=== PATIENT | female | born 1990 | race Caucasian/White ===

== ENCOUNTER 2022-08-13 10:49 | Outpatient (REF) | payer MEDICAID, SELFPAY ==
--- NOTE | ~2022-08-13 | XR_ITS ---
EXAMINATION: CERVICAL SPINE 3 VIEWS CLINICAL INFORMATION: Cerebral palsy. COMPARISON: None. TECHNIQUE: Frontal, bilateral oblique, lateral and odontoid views are obtained. FINDINGS: Vertebral body heights are normal. There is a slight cervical levoscoliosis. . The disc spaces are well-maintained. No acute fracture or spondylolisthesis is seen. The posterior elements are intact. No definite neural foraminal narrowing is seen on oblique views, limited by patient positioning. There is no prevertebral soft tissue swelling. The dens and C7-T1 interface are normal. XR/XR cervical spine w flex/ext IMPRESSION: 1. There is a slight cervical levoscoliosis. 2. The cervical disc spaces are well-maintained EXAMINATION: XR THORACIC SPINE CLINICAL INFORMATION: Limited range of motion. COMPARISON: None TECHNIQUE: Frontal, lateral and odontoid views of the thoracic spine were obtained. FINDINGS: Vertebral body heights are normal. There is a moderate thoracolumbar dextroscoliosis. There is leftward disc space narrowing at T9-T10 and T10-T11. The remaining thoracic disc spaces are well-maintained. There are intact Martin rods, extending from approximately T3-L4. The posterior elements are intact. The paravertebral soft tissues are unremarkable. IMPRESSION: 1. There is a moderate thoracolumbar dextroscoliosis. 2. There are intact thoracolumbar Martin rods. 3. There is a mild to moderate degenerative disc disease at T9-T10 and T10-T11. EXAMINATION: XR LUMBOSACRAL SPINE CLINICAL INFORMATION: Limited range of motion. COMPARISON: None TECHNIQUE: AP, lateral, and both oblique views of the lumbosacral spine. FINDINGS: Vertebral body heights are normal. There is a moderate thoracolumbar dextroscoliosis. Intact thoracolumbar Martin rods are noted. There is mild disc space narrowing extending from L1-L2 through L3-L4. The posterior elements are intact. The paravertebral soft tissues are unremarkable. IMPRESSION: 1. There is a moderate thoracolumbar dextroscoliosis. 2. There are intact thoracolumbar Martin rods. 3. There is mild degenerative disc disease extending from L1-L2 through L3-L4.
--- NOTE | ~2022-08-13 | XR_ITS ---
EXAMINATION: CERVICAL SPINE 3 VIEWS CLINICAL INFORMATION: Cerebral palsy. COMPARISON: None. TECHNIQUE: Frontal, bilateral oblique, lateral and odontoid views are obtained. FINDINGS: Vertebral body heights are normal. There is a slight cervical levoscoliosis. . The disc spaces are well-maintained. No acute fracture or spondylolisthesis is seen. The posterior elements are intact. No definite neural foraminal narrowing is seen on oblique views, limited by patient positioning. There is no prevertebral soft tissue swelling. The dens and C7-T1 interface are normal. XR/XR lumbar spine 4V min IMPRESSION: 1. There is a slight cervical levoscoliosis. 2. The cervical disc spaces are well-maintained EXAMINATION: XR THORACIC SPINE CLINICAL INFORMATION: Limited range of motion. COMPARISON: None TECHNIQUE: Frontal, lateral and odontoid views of the thoracic spine were obtained. FINDINGS: Vertebral body heights are normal. There is a moderate thoracolumbar dextroscoliosis. There is leftward disc space narrowing at T9-T10 and T10-T11. The remaining thoracic disc spaces are well-maintained. There are intact Martin rods, extending from approximately T3-L4. The posterior elements are intact. The paravertebral soft tissues are unremarkable. IMPRESSION: 1. There is a moderate thoracolumbar dextroscoliosis. 2. There are intact thoracolumbar Martin rods. 3. There is a mild to moderate degenerative disc disease at T9-T10 and T10-T11. EXAMINATION: XR LUMBOSACRAL SPINE CLINICAL INFORMATION: Limited range of motion. COMPARISON: None TECHNIQUE: AP, lateral, and both oblique views of the lumbosacral spine. FINDINGS: Vertebral body heights are normal. There is a moderate thoracolumbar dextroscoliosis. Intact thoracolumbar Martin rods are noted. There is mild disc space narrowing extending from L1-L2 through L3-L4. The posterior elements are intact. The paravertebral soft tissues are unremarkable. IMPRESSION: 1. There is a moderate thoracolumbar dextroscoliosis. 2. There are intact thoracolumbar Martin rods. 3. There is mild degenerative disc disease extending from L1-L2 through L3-L4.
--- NOTE | ~2022-08-13 | XR_ITS ---
EXAMINATION: CERVICAL SPINE 3 VIEWS CLINICAL INFORMATION: Cerebral palsy. COMPARISON: None. TECHNIQUE: Frontal, bilateral oblique, lateral and odontoid views are obtained. FINDINGS: Vertebral body heights are normal. There is a slight cervical levoscoliosis. . The disc spaces are well-maintained. No acute fracture or spondylolisthesis is seen. The posterior elements are intact. No definite neural foraminal narrowing is seen on oblique views, limited by patient positioning. There is no prevertebral soft tissue swelling. The dens and C7-T1 interface are normal. XR/XR thoracic spine 3V IMPRESSION: 1. There is a slight cervical levoscoliosis. 2. The cervical disc spaces are well-maintained EXAMINATION: XR THORACIC SPINE CLINICAL INFORMATION: Limited range of motion. COMPARISON: None TECHNIQUE: Frontal, lateral and odontoid views of the thoracic spine were obtained. FINDINGS: Vertebral body heights are normal. There is a moderate thoracolumbar dextroscoliosis. There is leftward disc space narrowing at T9-T10 and T10-T11. The remaining thoracic disc spaces are well-maintained. There are intact Martin rods, extending from approximately T3-L4. The posterior elements are intact. The paravertebral soft tissues are unremarkable. IMPRESSION: 1. There is a moderate thoracolumbar dextroscoliosis. 2. There are intact thoracolumbar Martin rods. 3. There is a mild to moderate degenerative disc disease at T9-T10 and T10-T11. EXAMINATION: XR LUMBOSACRAL SPINE CLINICAL INFORMATION: Limited range of motion. COMPARISON: None TECHNIQUE: AP, lateral, and both oblique views of the lumbosacral spine. FINDINGS: Vertebral body heights are normal. There is a moderate thoracolumbar dextroscoliosis. Intact thoracolumbar Martin rods are noted. There is mild disc space narrowing extending from L1-L2 through L3-L4. The posterior elements are intact. The paravertebral soft tissues are unremarkable. IMPRESSION: 1. There is a moderate thoracolumbar dextroscoliosis. 2. There are intact thoracolumbar Martin rods. 3. There is mild degenerative disc disease extending from L1-L2 through L3-L4.
== END 2022-08-13 10:50 | disposition home or self-care (01) ==
LOC: HO.XRAY 10:49
PROVIDERS: PCP Family Medicine; Visit Provider Family Medicine
DX: M41.9 Scoliosis, unspecified (principal); G80.8 Other cerebral palsy
CPT/HCPCS: 72052; 72072; 72110

== ENCOUNTER 2022-12-04 08:01 | Emergency (ER) | payer MEDICAID, SELFPAY ==
--- NOTE | 2022-12-04 08:10 | ED.GENADULT ---
HPI - General Adult General Chief complaint: Extremity Injury, Lower Stated complaint: ? removed needle Time Seen by Provider: 12/04/22 08:10 Source: family (patient's parents) Mode of arrival: wheelchair Limitations: other (patient is non-verbal at baseline) History of Present Illness HPI narrative: Patient is a 32 year old assigned female at with a history of cognitive/developmental delay and wheelchair bound presenting to the emergency department today with left great toe pain. Patient's parents state that the patient's left great toe nail got stuck on something and lifted up partially away from the nailbed. Patient's parents state that they would like the nail to be removed. Patient's parents state that the patient is acting otherwise appropriately, eating and drinking well, producing appropriate amount of stool and urine. Onset (ago): day(s) Location: left (great toe) Radiation: non-radiation Severity: mild Severity scale (1-10): 1 Relieving factors: none Exacerbating factors: none Treatments prior to arrival: none Related Data Allergies Allergy/AdvReac Type Severity Reaction Status Date / Time No Known Allergies Allergy Unverified 12/04/22 08:14 [No Known Allergies*] Review of Systems Review of Systems: Yes Other (patient is non-verbal at baseline, ROS obtained from patient's parents) Constitutional: Constitutional: Reports no additional constitutional complaints, Denies chills, Denies fever(s) and Denies night sweats Eyes: Eyes: Reports no additional eye complaints, Denies blurry vision, Denies change in vision, Denies diplopia, Denies eye discharge, Denies loss of vision and Denies eye pain ENT: Denies dizziness Cardiovascular: Cardiovascular: Reports no additional cardiovascular complaints, Denies chest pain, Denies lightheadedness, Denies Loss of Consciousness and Denies dyspnea Respiratory: Respiratory: Reports no additional respiratory complaints and Denies dyspnea Gastrointestinal: Gastrointestinal: Reports no additional gastrointestinal complaints, Denies abdominal pain, Denies melena, Denies hematochezia, Denies change in bowel habits and Denies change in stool character Genitourinary: Genitourinary: Denies hematuria, Denies urinary frequency, Denies dysuria, Denies urinary incontinence, Denies urinary hesitancy and Denies urinary urgency Musculoskeletal: Musculoskeletal: Reports no additional musculoskeletal complaints, Denies numbness and Denies tingling Comments: left great toe pain Neurologic: Denies dizziness, Denies loss of vision, Denies numbness and Denies tingling Psychiatric: Psychiatric: Reports no additional psychiatric complaints Endocrine: Endocrine: Reports no additional endocrine complaints Hematologic/Lymphatic: Hematologic/Lymphatic: Reports no additional hematologic/lymphatic complaints Allergic/Immunologic: Allergic/Immunologic: Reports no additional allergic/immunologic complaints PMFSH Past Medical History Attestation statement: The following information was validated with the patient. (all information was validated with the patient's parents) Source: old records reviewed, obtained from family (patient's family) and nursing notes reviewed Social History Social History Advance Directives: No Physical Exam ED Vital Signs: Vital Signs - 24 hr 12/04/22 08:14 Temperature 98.4 F Pulse Rate 88 Respiratory Rate 16 Blood Pressure 125/76 Pulse Oximetry 98 Oxygen Delivery Method Room Air BMI result Body Mass Index 27.0 Const General: cooperative, no acute distress, alert and awake Nutritional Appearance: well nourished Limitations: wheelchair and other limitations (patient is non-verbal at baseline) HENMT Head: Yes normal to inspection and Yes atraumatic Ears: hearing grossly normal bilaterally and external ears normal General nose exam: Normal external nose present, no nasal discharge noted and no epistaxis Face and sinus: Yes normal facial exam, No abrasion and No laceration Mouth: Normal oral and palatal mucosa present, no drooling and no muffled voice Eyes General: appearance normal, both eyes and all related structures Periorbital: periorbital findings normal Eyelids: Yes eyelids normal Conjunctivae: conjunctivae normal Pupils: Equal, round and reactive pupils present EOM: EOMs intact bilaterally Neck Neck: Yes normal visual inspection, Yes full ROM and Yes no lymphadenopathy Chest Chest palpation & inspection: normal inspection of the chest Resp Effort & Inspection: normal respiratory effort and able to speak in complete sentences GI Inspection: Yes normal to inspection Neuro General: moves all extremities Cranial nerves: Yes Equal, round and reactive pupils present Cognition (Neuro): normal cognition Motor exam (neuro): 5/5 motor strength present throughout Sensory Exam: Normal double simultaneous stimulation for sensation Coordination: [id number] test normal Extrem Other: patient's bilateral upper extremities are partly contractured which is consistent with her baseline. Patient's great left toe shoes a partially avulsed nail with no evidence of infection. Procedures Nerve Block Nerve Block 1: Time out performed: Yes Local Anesthetic: lidocaine 1% Amount of anesthesia used (mL): 3 Side: left Nerve Blocks: other (left medial plantar nerve ) Procedure Successful: Yes Patient Tolerated Procedure: well Complications: none Additional Comments: nerve block applied and great toe nail bed removed by attending physician, Dr. Blakely. Medical Decision Making Medical Decision Making MDM Narrative: Patient is a 32 year old assigned female at with a history of cognitive/developmental delay, being non-verbal, and wheelchair bound status presenting to the emergency department today with left great toe injury. Patient's physical exam was as noted in the physical exam portion of this chart. I explained my physical exam findings to the patient and the patient's parents. I answered all questions asked by the patient and the patient's parents. Patient's left great toe was nerve blocked and the nail was removed by my attending physician Dr. Blakely, per my procedure note, without incident. I stressed the importance of the patient taking her medication as prescribed. I stressed the importance of the patient following up with her primary care provider and a purchasing internship. I stressed the importance of the patient returning to the emergency department immediately if her symptoms were to worsen or if she were to develop any dizziness, shortness of breath, difficulty breathing, chest pain, blurry vision, loss of vision, nausea, vomiting, abdominal pain, fever, chills, back pain, or any other complaints. Patient's parents verbalized agreement and understanding with this treatment plan and discharge. Differential Diagnosis Differential Diagnoses: The differential diagnosis associated with the presentation includes left great toe nail avulsion Independent Historian Clinical information obtained from an independent historian. History obtained from or confirmed by: Parent (patient's parents provided additional history) Chronic Conditions Patient?s care impacted by: Other (wheelchair bound, cognitive + developmental delay, non-verbal) Discharge Plan Discharge Clinical Impression: Great toe pain Patient Disposition: Home, Self-Care Additional Instructions: Follow up with your primary care provider. Return to the emergency department immediately if your symptoms worsen or if you develop any dizziness, shortness of breath, difficulty breathing, chest pain, blurry vision, loss of vision, nausea, vomiting, abdominal pain, fever, chills, back pain, or any other complaints. Rosalie un seguimiento con back proveedor de atenci?n primaria. Regrese a la jaspreet de emergencias de inmediato si haydee s?ntomas empeoran o si presenta mareos, dificultad para respirar, dolor de pecho, visi?n borrosa, p?rdida de la visi?n, n?useas, v?mitos, dolor abdominal, fiebre, escalofr?os, dolor de espalda o cualquier otras quejas. Referrals: Tao Gongora DPM [Physician] - (Call to establish and follow up with a healthcare science specialist. Llame para establecer y hacer un seguimiento con un especialista en pies.) Mulu Martin MD [Primary Care Provider] - Interventions: ED Discharge Assessment Last Done: 12/04/22 10:21 Discharge Date/Time: 12/04/22 10:21 Print Language: Armenian
[2022-12-04 08:14] VITALS: BP 125/76; PULSE 88; RESP 16; TEMP 36.9; O2SAT 98; BMI 27.0
== END 2022-12-04 10:21 | disposition home or self-care (01) ==
PROVIDERS: Emergency Provider Emergency Medicine; PCP Family Medicine
DX: S91.202A Unspecified open wound of left great toe with damage to nail, initial encounter (principal); X58.XXXA Exposure to other specified factors, initial encounter; Y93.9 Activity, unspecified; Y92.9 Unspecified place or not applicable; Y99.9 Unspecified external cause status
CPT/HCPCS: 11730; 99282; 99283

== ENCOUNTER 2023-02-16 15:45 | Outpatient (REF) | payer MEDICAID, SELFPAY ==
[2023-02-16 16:52] LABS: MANUAL DIFF FLAG NO
[2023-02-16 17:05] LABS: Hematocrit 39.6 % (37.0-47.0); Hemoglobin 12.8 g/dl (12.0-16.0); Mean Corpuscular HGB Conc 32.3 g/dl (31.0-35.0); Mean Corpuscular Hemoglobin 28.6 pg (27.0-33.0); Mean Corpuscular Volume 88.6 fL (80.0-98.0); Red Blood Count 4.47 X10*6/uL (4.20-5.50); Red Cell Distribution Width 15.4 % (11.0-16.0); White Blood Count 10.4 X10*3/uL (4.8-10.8)
[2023-02-16 17:06] LABS: Basophils Absolute Auto 0.1 X10*3/uL (0.0-0.2); Basophils Percent Auto 0.6 % (0-2); Eosinophils Absolute Auto 0.5 X10*3/uL (0.0-0.4); Imm Gran Abs Auto 0.02 X10*3/uL (0.00-0.03); Imm Gran Pct Auto 0.2 % (0.0-0.4); Lymphocytes Absolute Auto 3.6 X10*3/uL (1.2-4.9); Lymphocytes Percent Auto 34.5 % (20-40); Mean Platelet Volume 12.7 fL (9.4-12.3); Monocytes Absolute Auto 0.8 X10*3/uL (0.1-1.2); Monocytes Percent Auto 7.2 % (2-11); Neutrophils Absolute Auto 5.5 x10*3/uL (2.0-8.3); Neutrophils Percent Auto 52.5 % (45-73); Platelet Count 248 X10*3/uL (160-400)
[2023-02-16 17:30] LABS: Estimated Average Glucose 91 mg/dL; Hemoglobin A1c % 4.8 % (<6.0)
[2023-02-16 17:42] LABS: Cholesterol 217 mg/dL (<200); HDL Cholesterol 57 mg/dL (>40); LDL Cholesterol Calculated 133 mg/dL (<100); Triglycerides 139 mg/dL (<150)
[2023-02-16 17:45] LABS: Alanine Aminotransferase 16 U/L (0-31); Albumin Level 3.9 g/dL (3.5-5.0); Alkaline Phosphatase 84 U/L (39-117); Anion Gap 14 (12-20); Aspartate Amino Transferase 18 U/L (5-31); Bilirubin Total 0.3 mg/dL (0.0-1.0); Blood Urea Nitrogen 8 mg/dL (9-16); Calcium 9.5 mg/dL (8.4-10.2); Carbon Dioxide 24 mmol/L (22-29); Chloride 104 mmol/L (96-108); Estimated Glomerular Filt Rate > 60; Glucose Random 93 mg/dL (60-115); Sodium 138 mmol/L (135-145); Total Protein 7.7 g/dL (6.5-8.0)
[2023-02-16 20:24] LABS: Reflex LDLD? No
[2023-02-17 08:48] LABS: Prolactin 85.3 ng/mL
== END 2023-02-16 15:46 | disposition home or self-care (01) ==
LOC: HO.HHCL 15:45
PROVIDERS: Visit Provider Family Medicine
DX: E28.2 Polycystic ovarian syndrome (principal); E22.1 Hyperprolactinemia
CPT/HCPCS: 36415; 80053; 80061; 83036; 84146; 84443; 85025

== ENCOUNTER 2023-10-14 14:33 | Outpatient (REF) | payer MEDICAID, SELFPAY ==
--- NOTE | ~2023-10-14 | FL_ITS ---
EXAMINATION: Modified Barium Swallow CLINICAL INFORMATION: Dysphagia COMPARISON: None TECHNIQUE: Modified barium swallow was performed under lateral fluoroscopy with patient in standing position. Different consistency of barium was administered by the speech therapist. FINDINGS: No laryngeal penetration or tracheal aspiration was seen during this examination. FLUOROSCOPY TIME: 1 minute 36 seconds Number of Spot Images: 1 DOSE AREA PRODUCT: [id number] uGy-m2 (microgray-meter squared) FL/FL barium swallow modified IMPRESSION: No laryngeal penetration or tracheal aspiration was seen during this examination. Refer to the speech therapy report for further clarification This procedure was performed by Jacob Nick PA-C, and supervised by Dr. Haskins
--- NOTE | 2023-10-14 16:00 | MHC.SL.IMP ---
Date of Plan of Treatment: 10/14/23 Onset of Symptoms/Illness: 09/08/23 Date Treatment Started: 10/14/23 Admitting Diagnosis: Quadriplegic cerebral palsy, Dysphagia Primary Speech & Language Diagnosis: R13.11 Oral Phase Dysphagia Reason for Today's Visit: 15559 Modified Barium Swallow Study Pre-evaluation Dietary Consistencies: Pureed (NDD1) Pre-evaluation Liquid Consistency: Thin Pre-evaluation Medication Administration: UNK Medical History: Modified Barium Swallow Study Fluoroscopic Evaluation of Swallowing Function CPT Code 33283 Evaluation Year: 2023 Reason for Study: Difficulty swallowing Referring Physician: Mulu Martin Evaluating Clinician: Karen Castillo MA, CCC-TEXTILES PRINTER Study Number: 1 Patient Name: Hernandez Keys Status: Outpatient, Wheelchair Age: 33 Gender: Female Medical History Chronic constipation Intellectual disability PCOS Quadriplegic cerebral palsy Seborrheic dermatitis Hirsutism Hyperprolactinemia Stereotypic movement disorder with self-injurious behavior Scoliosis Swallowing difficulty Impacted cerumen, bilateral Current (pre-evaluation) Intake/Diet: Route: PO Diet Grade: Puree Liquid Consistencies: Thin Pre-Study Functional Oral Intake Scale (FOIS): 5- Total oral intake of multiple consistencies requiring special preparation Pain: None reported at time of study SUBJECTIVE: Patient is a 33 year old female with cerebral palsy accompanied to this exam by her parents. Patient is mostly nonverbal and uses a wheelchair. Her parents state that patient does not seem to be in pain or distress, but she also is not always able to communicate this with them. They are concerned that because patient makes noises and exhibits some behaviors, such as jerking of her shoulders, during mealtime that she may be having difficulty swallowing. She eats a blended diet at home and drinks thin liquids (watered down juice). She was referred for a modified barium swallow study to evaluate the extent of her dysphagia and to provide feeding recommendations. Oral Motor Exam Mouth Occlusion: Normal Oral-Facial Teeth Characteristics: Intact/Normal Tongue Size: Normal Food and Liquid Trials: Oral Impairment: Lip Closure: Did not test Oral Impairment: Tongue Control During Bolus Hold: Did not test Oral Impairment: Bolus Preparation/Mastication: Did not test Oral Impairment: Bolus Transport/Lingual Motion: 3=Repetitive/disorganized tongue motion Oral Impairment: Oral Residue: 2=Residue collection on oral structures Oral Impairment:Initiation of Pharyngeal Swallow: 1=Bolus head in valleculae Pharyngeal Impairment: Soft Palate Elevation: 0=No bolus between soft palate (SP)/pharyngeal wall (PW) Pharyngeal Impairment: Laryngeal Elevation: 0=Complete superior movement of thyroid cartilage (see description) Pharyngeal Impairment: Anterior Hyoid Excursion: 0=Complete anterior movement Pharyngeal Impairment: Epiglottic Movement: 0=Complete inversion Pharyngeal Impairment: Laryngeal Vestibular Closure:: 1=Incomplete: narrow column air/contrast in laryngeal vestibule Pharyngeal Impairment: Pharyngeal Stripping Wave: 0=Present: complete Pharyngeal Impairment: Pharyngeal Contraction: Did not test Pharyngeal Impairment: Pharyngoesophageal Segment Openin=Complete distension and complete duration: no obstruction of flow Pharyngeal Impairment: Tongue Base (TB) Retraction: 2=Narrow column of contrast/air between TB and posterior PW Pharyngeal Impairment: Pharyngeal Residue: 2=Collection of residue within or on pharyngeal structures Pharyngeal Impairment: Esophageal Clearance Upright Position: Did not test Impressions and Recommendations Clinical Observations: OBJECTIVE: Time-out: performed at 15:00 Evaluation Start: 14:30; Stop: 14:35 Patient Positioning: Seated 70-90 degrees Viewing Planes: LATERAL ONLY Contrast: MBSImP? Standardized Protocol using commercially prepared, standardized Barium viscosities, including: Varibar? THIN LIQUID (40% w/v, <15 cps) MBSImP ID: [id number] Results: Lip closure for intraoral bolus containment resulted in no labial escape. Tongue control during bolus hold could not be assessed due to logistical reasons not related to physiologic impairment. Bolus preparation and mastication could not be assessed; solid not given due to logistical reasons or safety concerns unrelated to oral impairment. Bolus transport/lingual motion was with repetitive/disorganized motion of the tongue. Oral residue was a collection on oral structures. Initiation of the pharyngeal swallow occurred when the bolus head was in the valleculae. Soft palate elevation resulted in no bolus between the soft palate and the pharyngeal wall. Laryngeal elevation demonstrated complete superior movement of the thyroid cartilage with complete approximation of the arytenoids to the epiglottic petiole. Anterior hyoid excursion demonstrated complete anterior movement. Epiglottic movement resulted in complete inversion. Laryngeal vestibular closure was incomplete, with a narrow column of air/contrast noted within the laryngeal vestibule at the height of the swallow. Pharyngeal stripping wave was present and complete. Pharyngeal contraction could not be determined due to logistical reasons not related to physiologic impairment. Pharyngoesophageal segment opening was completely distended for complete duration with no obstruction of bolus flow. Tongue base retraction allowed a narrow column of contrast or air between the retracted tongue base and the posterior pharyngeal wall. Pharyngeal residue was a collection of residue within or on pharyngeal structures. Esophageal clearance in the upright position could not be assessed due to logistical reasons not related to physiologic impairment. Oral Impairment Score: 6 (absence of score, component 2component 3) Pharyngeal Impairment Score: 5 (absence of score, component 13) Esophageal Impairment Score: --- (absence of score, component 17) Laryngeal Penetration and Aspiration: Neither penetration nor aspiration was observed in today's study with Puree, Thin. ASSESSMENT: This exam was performed by the speech pathologist and the radiologist. Patient was seated upright in her wheelchair for lateral view only and trialed thin (via spoon and straw) and puree consistencies. Patient demonstrated adequate labial seal with no significant anterior spilling. Posterior lingual motion was mildly delayed with brief period of tongue pumping and reduced tongue retraction. Pharyngeal swallow trigger initiated as the bolus flowed into the valleculae. Post-swallow there was minimal coating of residue on the tongue and palate. There was no nasopharyngeal reflux. Complete laryngeal elevation with epiglottic inversion. Note very narrow space with air due to incomplete laryngeal vestibular closure, however, no evidence of contrast entering into the trachea. No aspiration or penetration visualized during this exam. There was a minimal retention on the tongue base and in the valleculae with both liquid and semi-solid. No obstruction of flow through the PES. Liquid Intake Recommendation: Thin Liquid Intake Strategies: Small Sips Dietary Recommendations: Pureed (NDD1) Medication Administration: Crushed with Puree Please contact the pharmacy regarding appropriate crushable or liquid drug formulations that are available whenever modified delivery is recommended. Compensatory Strategies Recommended: Sitting Upright (90 deg), Double Swallow, Small Bites and Sips, Alternate Liquids/Solids, Rate of Ingestion Change. Oral Check Supervision during eating and or drinking: Total Assistance (1:1) Recommendation for Speech Therapy: NA:Typical Evaluation Text Comment: PLAN: Intake Recommendations: Route: PO Diet Grade: Puree Liquid Consistencies: Thin Post-Study Functional Oral Intake Scale (FOIS): 5- Total oral intake of multiple consistencies requiring special preparation Mild oral phase dysphagia with delayed initiation, reduced tongue retraction, and tongue pumping behavior. No evidence of aspiration or penetration during this exam. Recommend patient continue on her baseline diet of purees and thin liquids. The following strategies are recommended to maximize safety and were discussed with the patient?s family after the exam: -Give small bites and sips -Allow patient ample time and watch for swallow before giving more bites and sips -Ensure patient is taking small sips by pinching straw or using spoon/covered cup -Maintain upright 90 degree position while eating and drinking Suggested Referrals: The patient might benefit from a referral to: Gastroenterology Indication for Referral: Reports of patient having gas per parents. Therapy Recommendations: Therapy will be discontinued Clinician - Supplemental, Miscellaneous Communication: It is important to note MBSS objective studies are snapshots in time and Patient function might vary with factors such as time of day or concomitant medical conditions. For this reason, the final treatment plan for this patient should rest with their medical care team. Additional recommendations should be considered with the totality of the Patient in mind. Thank for the opportunity to participate in the care of this patient. If you have any questions about the content of this report, please contact the [facility] at [facility]. Education: Education regarding findings from today's study and plans for therapy were provided to Family/caregiver only through Verbal Instruction. Understanding was expressed by the Family/caregiver only. Education General Manager Clinician/Clinical Fellow: No Supervisory Statement: N/A Speech Language Pathologist: Karen Castillo M.A., CCC-TEXTILES PRINTER
== END 2023-10-14 14:34 | disposition home or self-care (01) ==
LOC: HO.XRAY 14:33
PROVIDERS: PCP Family Medicine; Visit Provider Family Medicine
DX: R13.10 Dysphagia, unspecified (principal); G80.8 Other cerebral palsy
CPT/HCPCS: 74230; 92611

== ENCOUNTER → 2023-10-14 14:35 | Outpatient (BNV) | payer MEDICAID, SELFPAY | PROVIDERS: PCP Family Medicine; Visit Provider Physician Assistant Surgical | DX: R13.10 Dysphagia, unspecified (principal) | CPT/HCPCS: 74230 ==

== ENCOUNTER 2023-12-09 10:25 | Outpatient (AMB) | payer MEDICAID, SELFPAY ==
--- NOTE | 2023-12-09 10:29 | MHC.OFFVIS ---
Vital Signs 12/09/23 10:36 Height 5 ft 1 in Intake Visit Reasons: Dysphagia/Flatulence Intake Note: Hernandez presents in office today as a new patient for dysphagia and flatulence. CC: Per patient parents the patient does not chew so she eats mashed, moist, soft food. Patient chokes with liquids. They also report flatulence. Regulatory Affairs Coordinator Required: Yes Accompanied by: parents Allergies No Known Allergies [No Known Allergies*] Allergy (Verified 12/09/23 10:41) HPI HPI Dysphagia/Flatulence: Details: 33-year-old female here for initial evaluation of dysphagia and flatulence. She is referred by [facility] [place]. P.m. X Intellectual disability Cerebral palsy with quadriplegia PCOS Chronic constipation Acne Seborrheic dermatitis Self-injury behavior Scoliosis * SURGICAL HISTORY * ALLERGIES: NKDA * [email or web address] LABS: None since 01/2023 BARIUM SWALLOW IMPRESSION: No laryngeal penetration or tracheal aspiration was seen during this examination. Refer to the speech therapy report for further clarification SPEECH THERAPY REPORT PLAN: Intake Recommendations: Route: PO Diet Grade: Puree Liquid Consistencies: Thin Post-Study Functional Oral Intake Scale (FOIS): 5- Total oral intake of multiple consistencies requiring special preparation Mild oral phase dysphagia with delayed initiation, reduced tongue retraction, and tongue pumping behavior. No evidence of aspiration or penetration during this exam. Recommend patient continue on her baseline diet of purees and thin liquids. The following strategies are recommended to maximize safety and were discussed with the patient?s family after the exam: -Give small bites and sips -Allow patient ample time and watch for swallow before giving more bites and sips -Ensure patient is taking small sips by pinching straw or using spoon/covered cup -Maintain upright 90 degree position while eating and drinking TODAY'S VISIT [place] #Devan Zen The patient is here with her parents as she is developmentally and intellectually delayed. When she is being fed, she makes movements like she can't breath or may be choking. She does not cough anything back up. She did have a period of vomiting after eating. This was happening about 3 years ago but this seemed to have stopped about a year ago. NO wt loss. No new medicines at the time of sx onset. SHe recently was given a higher dose of a bid pill for her behavior - this may be risperidone. She had a mod barium swallow and there was a problem with delay of tongue and chewing mechanism, feeding her more slowly as suggested by speech therapy has helped. She has a great deal of belching and gas. She suffers chronic constipation. She is using bisacodyl and suppositories for this. Her mother tries to wait and only gives these if the patient has not moved her bowels for 2 days. They have not tried giving her something every day. They will only give her 1 bisacodyl at a time. If they give it to her every day she would get diarrhea. She has never tried senna adn I think 1 a day would be appropriate to promote better gastric motility and mobilize gas. If not, we can try creon. She takes pills well with applesauce and whole if small enough. Her father has digestive issues that he sees Dr. Estrada for ? biliary dyskinesia and he takes o2o. Sumit Keys, ro[place] 09/30/1958 ROV 6 weeks. [facility] Medical History (Updated 12/09/23 @ 14:15 by ADEBAYO Merrill) Post-surgical scoliosis Surgical History (Updated 12/09/23 @ 10:45 by DAVID Bennett) [place] teeth extracted Family History (Updated 12/09/23 @ 10:47 by DAVID Bennett) Maternal Aunt Colon cancer Maternal Aunt Ovarian cancer Maternal Aunt Skin cancer Maternal Uncle Prostate cancer Father HTN (hypertension) Paternal Grandmother Heart disease Social History (Updated 12/09/23 @ 10:47 by DAVID Bennett) Alcohol intake: never Patient Tobacco Use Status: Never used Tobacco Review of Systems Const Denies fatigue, Denies fever(s), Denies night sweats, Denies poor appetite and Denies weight loss ENT Reports Normal hearing present, Denies dental pain, Reports dysphagia, Denies hearing loss, Denies mouth pain, Denies odynophagia, Denies throat swelling, Denies tongue swelling and Reports other (Dentition adequate) Card Reports no additional complaints Resp Reports no additional complaints GI Details: Denies abdominal pain, Denies melena, Reports bloating, Denies hematochezia, Reports constipation, Denies GI cramping, Reports dysphagia, Reports excessive flatus, Denies early satiety, Denies heartburn, Denies diarrhea, Denies nausea, Denies odynophagia, Denies vomiting and Denies hematemesis Musc Reports deformity and Reports muscle weakness Skin/Breast Denies pruritus, Denies lesions, Denies rash and Denies jaundice Neuro Reports Normal hearing present, Denies Abnormal speech present and Reports lack of coordination Endo Denies fatigue Aller/Immun Denies throat swelling and Denies tongue swelling Physical Exam Const General: cooperative, no acute distress, well developed and well groomed Nutritional Appearance: well nourished and overweight Orientation/consciousness: oriented to person, oriented to place and oriented to time Limitations: language barrier, wheelchair and other limitations HEENT Head: Yes normocephalic and Yes atraumatic Eyes General: appearance normal, both eyes and all related structures Pupils: Equal, round and reactive pupils present Neck Neck: Yes normal visual inspection and Yes no lymphadenopathy Thyroid: Thyroid normal Resp Effort & Inspection: normal respiratory effort and able to speak in complete sentences Auscultation: clear to auscultation bilaterally Cardio Rate: regular rate Rhythm: regular rhythm Heart sounds: Normal, physiologic split S2 sound present Peripheral pulses: radial pulses present and posterior tibial pulses present GI Inspection: No distended, No Abdominal panniculus present and Yes obesity Palpation (GI): Soft to palpation, nontender, no guarding, not rigid and No hepatosplenomegaly present Percussion: Yes normal to percussion Auscultation: Hypoactive bowel sounds present Rectal Exam - Female: deferred Skin General skin exam: no rashes or lesions noted, turgor normal, skin not dry, no jaundice, No spider nevi and no striae Rashes: no rashes Nails: normal Neuro General: oriented to person, oriented to place and oriented to time Cranial nerves: Yes Equal, round and reactive pupils present and Yes Normal hearing present Speech: No Abnormal speech present Extrem General: Yes normal to inspection, No clubbing, No cyanosis and No edema Psych Appearance: grossly normal and well kempt Mental Status: other Speech and movement: Mute speech present Affect: normal affect Attitude: cooperative Thought process: Other thought process findings present Thought content: other Insight: Poor insight present (Psych) Judgement: Poor judgement present (Psych) Results Reviewed Results Reviewed: BARIUM SWALLOW IMPRESSION: No laryngeal penetration or tracheal aspiration was seen during this examination. Refer to the speech therapy report for further clarification SPEECH THERAPY REPORT PLAN: Intake Recommendations: Route: PO Diet Grade: Puree Liquid Consistencies: Thin Post-Study Functional Oral Intake Scale (FOIS): 5- Total oral intake of multiple consistencies requiring special preparation Mild oral phase dysphagia with delayed initiation, reduced tongue retraction, and tongue pumping behavior. No evidence of aspiration or penetration during this exam. Recommend patient continue on her baseline diet of purees and thin liquids. The following strategies are recommended to maximize safety and were discussed with the patient?s family after the exam: -Give small bites and sips -Allow patient ample time and watch for swallow before giving more bites and sips -Ensure patient is taking small sips by pinching straw or using spoon/covered cup -Maintain upright 90 degree position while eating and drinking Assessment & Plan Assessment & Plan (1) Chronic idiopathic constipation: Code(s): K59.04 - Chronic idiopathic constipation Category: Medical (2) Gas bloat syndrome: Code(s): K92.89 - Other specified diseases of the digestive system Category: Medical Plan [place] #Devan Zen The patient is here with her parents as she is developmentally and intellectually delayed. When she is being fed, she makes movements like she can't breath or may be choking. She does not cough anything back up. She did have a period of vomiting after eating. This was happening about 3 years ago but this seemed to have stopped about a year ago. NO wt loss. No new medicines at the time of sx onset. SHe recently was given a higher dose of a bid pill for her behavior - this may be risperidone. She had a mod barium swallow and there was a problem with delay of tongue and chewing mechanism, feeding her more slowly as suggested by speech therapy has helped. She has a great deal of belching and gas. She suffers chronic constipation. She is using bisacodyl and suppositories for this. Her mother tries to wait and only gives these if the patient has not moved her bowels for 2 days. They have not tried giving her something every day. They will only give her 1 bisacodyl at a time. If they give it to her every day she would get diarrhea. She has never tried senna adn I think 1 a day would be appropriate to promote better gastric motility and mobilize gas. If not, we can try creon. She takes pills well with applesauce and whole if small enough. Her father has digestive issues that he sees Dr. Estrada for ? biliary dyskinesia and he takes o2o. Sumit Keys, 09/30/1958 ROV 6 weeks. Orders: Orders Comprehensive Met. Panel Today K59.04 - Chronic idiopathic constipation Complete Blood Count Auto Diff Today K59.04 - Chronic idiopathic constipation Medications: New sennosides (Senna Laxative) 8.6 mg PO BEDTIME 30 tabs 6RF K59.04 - Chronic idiopathic constipation Coding Level of Care Code New Pt Level 3 (95596) Diagnoses Chronic idiopathic constipation K59.04 Gas bloat syndrome K92.89
== END 2023-12-09 11:15 | disposition home or self-care (01) ==
PROVIDERS: PCP Family Medicine; Visit Provider Nurse Practitioner
DX: K59.04 Chronic idiopathic constipation (principal); K92.89 Other specified diseases of the digestive system
CPT/HCPCS: 99203

== ENCOUNTER → 2023-12-09 10:25 | Outpatient (BNVA) | payer MEDICAID, SELFPAY | PROVIDERS: PCP Family Medicine; Visit Provider Nurse Practitioner | DX: K59.04 Chronic idiopathic constipation (principal); K92.89 Other specified diseases of the digestive system | CPT/HCPCS: 99212 ==

== ENCOUNTER 2024-03-03 07:41 | Outpatient (REF) | payer MEDICAID, SELFPAY ==
[2024-03-03 08:41] LABS: Basophils Absolute Auto 0.1 X10*3/uL (0.0-0.2); Basophils Percent Auto 0.6 % (0-2); Eosinophils Absolute Auto 0.2 X10*3/uL (0.0-0.4); Eosinophils Percent Auto 2.3 % (0-4); Hematocrit 41.6 % (37.0-47.0); Hemoglobin 14.1 g/dl (12.0-16.0); Imm Gran Abs Auto 0.02 X10*3/uL (0.00-0.03); Imm Gran Pct Auto 0.2 % (0.0-0.4); Lymphocytes Absolute Auto 3.4 X10*3/uL (1.2-4.9); Lymphocytes Percent Auto 35.9 % (20-40); MANUAL DIFF FLAG SCAN; Mean Corpuscular HGB Conc 33.9 g/dl (31.0-35.0); Mean Corpuscular Volume 88.5 fL (80.0-98.0); Monocytes Absolute Auto 0.4 X10*3/uL (0.1-1.2); Monocytes Percent Auto 4.7 % (2-11); Neutrophils Absolute Auto 5.3 x10*3/uL (2.0-8.3); Neutrophils Percent Auto 56.3 % (45-73); PLT CLUMP 1; Red Cell Distribution Width 16.1 % (11.0-16.0); SCAN SMEAR FLAG 1; White Blood Count 9.5 X10*3/uL (4.8-10.8)
[2024-03-03 08:51] LABS: Alanine Aminotransferase 19 U/L (0-31); Alkaline Phosphatase 77 U/L (39-117); Anion Gap 14 (12-20); Aspartate Amino Transferase 22 U/L (5-31); Bilirubin Total 0.3 mg/dL (0.0-1.0); Blood Urea Nitrogen 7 mg/dL (9-16); Calcium 9.7 mg/dL (8.4-10.2); Carbon Dioxide 22 mmol/L (22-29); Chloride 105 mmol/L (96-108); Estimated Glomerular Filt Rate > 60; Glucose Random 77 mg/dL (60-115); Potassium 3.9 mmol/L (3.3-5.1); Sodium 137 mmol/L (135-145); Total Protein 7.6 g/dL (6.5-8.0)
[2024-03-03 09:03] LABS: SLIDE REVIEW VERIFIED
== END 2024-03-03 07:42 | disposition home or self-care (01) ==
LOC: HO.LAB 07:41
PROVIDERS: PCP Family Medicine; Visit Provider Nurse Practitioner
DX: K59.04 Chronic idiopathic constipation (principal)
CPT/HCPCS: 36415; 80053; 85025

== ENCOUNTER 2024-03-16 11:08 | Outpatient (AMB) | payer MEDICAID, SELFPAY ==
[2024-03-16 11:10] VITALS: BP 139/83; PULSE 98
--- NOTE | 2024-03-16 11:10 | MHC.OFFVIS ---
Vital Signs 03/16/24 11:10 Height 5 ft 1 in BP 139/83 Blood Pressure Location Lt brachial Position Sitting Pulse 98 Intake Visit Reasons: 6 Weeks Follow Up CIC Bloating Intake Note: Patient in office today in 6 weeks follow up of labs. CC: Patient's mother reports that the patients flatulence have reduced and she is having more regular BMs. 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 When she is being fed, she makes movements like she can't breath or may be choking. She does not cough anything back up. She did have a period of vomiting after eating. This was happening about 3 years ago but this seemed to have stopped about a year ago. NO wt loss. No new medicines at the time of sx onset. SHe recently was given a higher dose of a bid pill for her behavior - this may be risperidone. She had a mod barium swallow and there was a problem with delay of tongue and chewing mechanism, feeding her more slowly as suggested by speech therapy has helped. She has a great deal of belching and gas. She suffers chronic constipation. She is using bisacodyl and suppositories for this. Her mother tries to wait and only gives these if the patient has not moved her bowels for 2 days. They have not tried giving her something every day. They will only give her 1 bisacodyl at a time. If they give it to her every day she would get diarrhea. She has never tried senna adn I think 1 a day would be appropriate to promote better gastric motility and mobilize gas. If not, we can try creon. She takes pills well with applesauce and whole if small enough. Her father has digestive issues that he sees Dr. Estrada for ? biliary dyskinesia and he takes o2o. rosanna Iglesias 09/30/1958 ROV 6 weeks. Orders: Orders Comprehensive Met. Panel Today K59.04 - Chronic idiopathic constipation Complete Blood Count Auto Diff Today K59.04 - Chronic idiopathic constipation Medications: New sennosides (Senna Laxative) 8.6 mg PO BEDTIME 30 tabs 6RF K59.04 - Chronic idiopathic constipation LABS Laboratory Tests 03/03/24 07:52 WBC 9.5 Hgb 14.1 Hct 41.6 Plt Count TNP Estimated GFR > 60 Total Bilirubin 0.3 AST 22 ALT 19 Alkaline Phosphatase 77 TODAYS VISIT [place]ian #Vickie Zaldivar She is now doing very well with the senna, this has also improved her swallowing since her general GI motility is improved. Her family is very happy with this. ROV 6 mos. PFS Medical History Post-surgical scoliosis Surgical History [place] teeth extracted Family History Maternal Aunt Colon cancer Maternal Aunt Ovarian cancer Maternal Aunt Skin cancer Maternal Uncle Prostate cancer Father HTN (hypertension) Paternal Grandmother Heart disease Social History Alcohol intake: never Patient Tobacco Use Status: Never used Tobacco Review of Systems Const Denies fatigue, Denies fever(s), Denies night sweats, Denies poor appetite and Denies weight loss ENT Reports Normal hearing present, Denies dysphagia, Denies odynophagia, Denies throat swelling and Denies tongue swelling Card Reports no additional complaints Resp Reports no additional complaints GI Details: Denies abdominal pain, Denies melena, Reports bloating, Denies hematochezia, Reports constipation, Denies GI cramping, Denies dysphagia, Denies excessive flatus, Denies early satiety, Denies heartburn, Denies diarrhea, Denies nausea, Denies odynophagia, Denies vomiting and Denies hematemesis Skin/Breast Denies pruritus, Denies lesions, Denies rash and Denies jaundice Neuro Reports Normal hearing present and Denies Abnormal speech present Endo Denies fatigue Aller/Immun Denies throat swelling and Denies tongue swelling Physical Exam Vital Signs: Last Vital Signs Pulse 98 03/16/24 11:10 BP 139/83 03/16/24 11:10 Const General: cooperative, no acute distress, well developed and well groomed Nutritional Appearance: average body habitus and well nourished Orientation/consciousness: oriented to person, oriented to place and oriented to time Limitations: language barrier, wheelchair and other limitations HEENT Head: Yes normocephalic and Yes atraumatic Eyes General: appearance normal, both eyes and all related structures Pupils: Equal, round and reactive pupils present Neck Neck: Yes normal visual inspection and Yes no lymphadenopathy Thyroid: Thyroid normal Resp Effort & Inspection: normal respiratory effort and able to speak in complete sentences Auscultation: clear to auscultation bilaterally Cardio Rate: regular rate Rhythm: regular rhythm Heart sounds: Normal, physiologic split S2 sound present Peripheral pulses: radial pulses present and posterior tibial pulses present GI Inspection: No distended and No Abdominal panniculus present Palpation (GI): Soft to palpation, nontender, no guarding, not rigid and No hepatosplenomegaly present Percussion: Yes normal to percussion Auscultation: normal bowel sounds Rectal Exam - Female: deferred Skin General skin exam: no rashes or lesions noted, turgor normal, skin not dry, no jaundice, No spider nevi and no striae Rashes: no rashes Nails: normal Neuro General: oriented to person, oriented to place and oriented to time Cranial nerves: Yes Equal, round and reactive pupils present and Yes Normal hearing present Speech: No Abnormal speech present Extrem General: Yes normal to inspection, No clubbing, No cyanosis and No edema Psych Appearance: grossly normal and well kempt Mental Status: mental status grossly normal Speech and movement: Normal speech and movement present Affect: normal affect Attitude: cooperative Thought process: Normal thought process present and not confabulating Thought content: Normal thought content present Insight: Limited insight present (Psych) Judgement: Limited judgement present (Psych) Assessment & Plan Assessment & Plan (1) Chronic idiopathic constipation: Code(s): K59.04 - Chronic idiopathic constipation Category: Medical (2) Gas bloat syndrome: Code(s): K92.89 - Other specified diseases of the digestive system Category: Medical Plan [place]ian #Vickie Live She is now doing very well with the senna, this has also improved her swallowing since her general GI motility is improved. Her family is very happy with this. ROV 6 mos. Medications: Refilled sennosides (Senna Laxative) 8.6 mg PO BEDTIME 30 tabs 6RF K59.04 - Chronic idiopathic constipation Coding Level of Care Code Est Pt Level 3 (34857) Diagnoses Chronic idiopathic constipation K59.04 Gas bloat syndrome K92.89
== END 2024-03-16 11:44 | disposition home or self-care (01) ==
PROVIDERS: PCP Family Medicine; Visit Provider Nurse Practitioner
DX: K59.04 Chronic idiopathic constipation (principal); K92.89 Other specified diseases of the digestive system
CPT/HCPCS: 99213

== ENCOUNTER → 2024-03-16 11:08 | Outpatient (BNVA) | payer MEDICAID, SELFPAY | PROVIDERS: PCP Family Medicine; Visit Provider Nurse Practitioner | DX: K59.04 Chronic idiopathic constipation (principal); K92.89 Other specified diseases of the digestive system | CPT/HCPCS: 99212 ==

== ENCOUNTER 2024-08-30 | Outpatient (REF) | payer MEDICAID, SELFPAY ==
--- OUTSIDE RECORDS SUMMARY | 2024-08-31 14:01 | XMS_ITS | Encounter Summary ---
Author Organization [facility] [facility] Address [address] [place] [address] Care Team Providers Care Instructional Specialist Name Role Phone Mulu Martin MD Primary Care Provider [phone] Reason for Referral * Consultation (Routine) - Closed Specialty Diagnoses / Procedures Referred By Patience neumann Referred To Contact Gastroenterology Diagnoses Flatulence Dysphagia, unspecified type Quadriplegic cerebral palsy (CMS/HCC) Mulu Martin MD [address] [place] [address] Phone: tel: fax: [facility] Referral ID Status Reason Start Date Expiration Date V isits Requested Visits Authorized [id number] Closed Specialty Services Required 10/20/2023 10/19/2024 6 6 Encounter Details Date Type Department Care Team (Late st Contact Info) Description 10/16/2023 Orders Only [facility] [address] [place] [address] [phone] Mulu Martin MD [address] [place], [place] [phone] Flatulence (Primary Dx); Dysphagia, unspecified type; Quadriplegic cerebral palsy (CMS/HCC) Social History Tobacco Use Types Packs/Day Years Used Date Smoking Tobacco: Never Smokeless Tobacco: Never Alcohol Use Standard Drinks/Week Comments Never 0 (1 standard drink = 0.6 oz pur e alcohol) Housing Stability Answer Date Recorded What is your housing situation today? I have dewayne joe 08/28/[address] you li ve. Do you have problems with any of the following? None of the above 08/28/2023 Food Insecurity Answer Date Recorded Within the past 12 months, y ou worried that your food would run out before you got money to buy more: Never True 08/28/2023 Within the past 12 months,th e food you bought just didn't last and you didn't have enough money to get more: Never True 06/2023 Transportation Answer Date Recorded In the past 12 months, has l ack of transportation kept you from medical appts, meetings, work or from getting things needed for daily living? No 08/28/2023 Utilities Answer Date Recorded In the past 12 months, has t he electric, gas, oil or water company threatened to shut off services in your home? No 08/28/2023 Comments Unknown Sex and Gender Information Value Date Recorded Sex Assigned at Female 04/28/2022 10:19 AM EDT Legal Sex Female 10:19 AM EDT Gender Identity Female 04/28/2022 10:19 AM EDT Sexual Orientation Straight 04/28/2022 10 :19 AM EDT documented as of this encounter Plan of Treatment Scheduled Referrals Name Type Priority Associated Diagnoses Order Schedule Referral to Gastroenterology Outpatient Referral Routine Flatulence Dysphagia, unspecified type Quadriplegic cerebral palsy (CMS/HCC) Expected: 10/16/2023 (Approximate), Expires: 10/15/2024 documented as of this encounter Procedures Procedure Name Priority Date/Time Associated Diagnosis Comments SLIDE REVIEW Routine 03/03/2024 7:52 AM EDT Flatulence CBC WITH AUTO DIFFERENTIAL Routine 03/03/2024 7:52 AM EDT Flatulence COMPREHENSIVE METABOLIC PANEL Routine 03/03/2024 7:52 AM EDT Flatulence documented in this encounter Results * Slide Review (03/03/2024 7:52 AM EDT) Slide Review VERIFIED [facility] 03/03/2024 7:52 AM EDT 03/03/2024 7:52 AM EDT us Generic External Data Provider LAB BLOOD ORDERAB LES Final Result [facility] [address], [place] [phone] * (ABNORMAL) CBC auto differential (03/03/2024 7:52 AM EDT) White Blood Count 9.5 4.8 - 10.8 X10*3/uL [facility] Red Blood Count 4.70 4.20 - 5.50 X10*6/uL [facility] Hemoglobin 14.1 12.0 - 16.0 g/dl [facility] Hematocrit 41.6 37.0 - 47.0 % [facility] Mean Corpuscular Volume 88.5 80.0 - 98.0 fL [facility] Mean Corpuscular Hemoglobin 30.0 27.0 - 33.0 pg [facility] Mean Corpuscular HGB Conc 33.9 31.0 - 35.0 g/dl [facility] Red Cell Distribution Width 16.1(H) 11.0 - 16.0 % [facility] Platelet Count TNP 160 - 400 X10*3/uL [facility] Comment:Unable to obtain an accurate platelet count. Neutrophils Percent Auto 56.3 45 - 73 % [facility] Imm Gran Pct Auto 0.2 0.0 - 0.4 % [facility] Lymphocytes Percent Auto 35.9 20 - 40 % [facility] Monocytes Percent Auto 4.7 2 - 11 % [facility] Eosinophils Percent Auto 2.3 0 - 4 % [facility] Basophils Percent Auto 0.6 0 - 2 % [facility] NRBC Pct Auto 0.0 0.0 - 0.2 /100WBC [facility] Neutrophils Absolute Auto 5.3 2.0 - 8.3 x10*3/uL [facility] Imm Gran Abs Auto 0.02 0.00 - 0.03 X10*3/uL [facility] Lymphocytes Absolute Auto 3.4 1.2 - 4.9 X10*3/uL [facility] Monocytes Absolute Auto 0.4 0.1 - 1.2 X10*3/uL [facility] Eosinophils Absolute Auto 0.2 0.0 - 0.4 X10*3/uL [facility] Basophils Absolute Auto 0.1 0.0 - 0.2 X10*3/uL [facility] NRBC Abs Auto 0.000 0.0 - 0.012 X10*3/uL [facility] 03/03/2024 7:52 AM EDT 03/03/2024 7:52 AM EDT us Generic External Data Provider LAB BLOOD ORDERAB LES Edited Result - Final [facility] [address] [place] [phone] * (ABNORMAL) Comprehensive Metabolic Panel (03/03/2024 7:52 AM EDT) Sodium 137 135 - 145 mmol/L [facility] Potassium 3.9 3.3 - 5.1 mmol/L [facility] Chloride 105 96 - 108 mmol/L [facility] Carbon Dioxide 22 22 - 29 mmol/L [facility] Anion Gap 14 12 - 20 [facility] Urea Nitrogen (BUN) 7(L) 9 - 16 mg/dL [facility] Creatinine, Serum 0.64 0.5 - 1.4 mg/dL [facility] Estimated Glomerular Filt Rate >60 [facility] Comment:NOTE: For -Am erican individuals, multiply the result by 1.210.Chronic Kidney Disease: Estimated GFR < 60 mL/min/[id number] Kidney Disease: Estimated GFR < 15 mL/min/1.73m2 Glucose 77 60 - 115 mg/dL [facility] Calcium 9.7 8.4 - 10.2 mg/dL [facility] Bilirubin, Total 0.3 0.0 - 1.0 mg/dL [facility] Aspartate Amino Transferase 22 5 - 31 U/L [facility] Alanine Aminotransferase 19 0 - 31 U/L [facility] Total Protein 7.6 6.5 - 8.0 g/dL [facility] Albumin Level 4.0 3.5 - 5.0 g/dL [facility] Alkaline Phosphatase 77 39 - 117 U/L [facility] 03/03/2024 7:52 AM EDT 03/03/2024 7:52 AM EDT us Generic External Data Provider LAB BLOOD ORDERAB LES Final Result [facility] [address] [place] [address] [phone] documented in this encounter Visit Diagnoses Diagnosis Flatulence- Primary Flatulence, eructation, and gas pain Dysphagia, unspecified type 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
--- OUTSIDE RECORDS SUMMARY | 2024-08-31 14:01 | XMS_ITS | Encounter Summary ---
Author Organization [facility] Address [address] [place] [address] Phone Care Team Providers Care Lodging House Keeper Name Role Phone Theresa Peña MD Primary Care Provider [phone] Encounter Details Date Type Department Care Team (Late st Contact Info) Description 02/12/2017 Conversion Encounter [facility] [address] [place] [address] Social History Tobacco Use Types Packs/Day Years Used Date Smoking Tobacco: Never Assessed Comments Unknown Sex and Gender Information Value Date Recorded Sex Assigned at Not on file Legal Sex Female 4:21 PM EDT Gender Identity Not on file Sexual Orientation Not on file documented as of this encounter Plan of Treatment Not on file documented as of this encounter Visit Diagnoses Not on filedocumented in this encounter Care Teams Lodging House Keeper Relationship Specialty Start Date End Date Theresa Peña MD [address] [place] [address] PCP - General 02/06/17 10/08/22 documented as of this encounter
--- OUTSIDE RECORDS SUMMARY | 2024-08-31 14:01 | XMS_ITS | Encounter Summary ---
Author Organization [employer] Address [address] [place] [address] Care Team Providers Care Multi Care Technician Name Role Phone Mulu Martin MD Primary Care Provider [phone] Encounter Details Date Type Department Care Team (Latest Contact Info) Description 08/30/2024 Travel Social History Tobacco Use Types Packs/Day Years Used Date Smoking Tobacco: Never Smokeless Tobacco: Never Alcohol Use Standard Drinks/Week Comments Never 0 (1 standard drink = 0.6 oz pur e alcohol) Housing Stability Answer Date Recorded What is your housing situation today? I have dewayne joe 08/30/[address] you li ve. Do you have problems with any of the following? None of the above 08/30/2024 Food Insecurity Answer Date Recorded Within the past 12 months, y ou worried that your food would run out before you got money to buy more: Never True 08/30/2024 Within the past 12 months,th e food you bought just didn't last and you didn't have enough money to get more: Never True 09/2024 Transportation Answer Date Recorded In the past 12 months, has l ack of transportation kept you from medical appts, meetings, work or from getting things needed for daily living? No 08/30/2024 Utilities Answer Date Recorded In the past 12 months, has t he electric, gas, oil or water company threatened to shut off services in your home? No 08/30/2024 Internet Access Answer Date Recorded Internet Access Q1 Yes 08/30/2024 Internet Access Q2 Not on file 08/30/2024 Comments Unknown Sex and Gender Information Value [...] on filedocumented in this encounter Care Teams Multi Care Technician Relationship Specialty Start Date End Date Mulu Martin MD [address] [place] [address] PCP - General Family Medicine 06/29/18 documented as of this encounter
--- OUTSIDE RECORDS SUMMARY | 2024-08-31 14:01 | XMS_ITS | Clinical Summary ---
Author Organization [employer] Address [address] [place] [address] [address] [place] [address] Care Team Providers Care Herb Grower Name Role Phone Mulu Martin MD Primary Care Provider [phone] Allergies No known active allergies Medications econazole nitrate 1 % cream APPLY TOPICALLY TO THE AFFECTED AND SURROUNDING AREAS TWICE DAILY 2 Active risperiDONE (RisperDAL) 0.5 MG tablet TAKE 1 TABLET BY MOUTH EVERY DAY AT BEDTIME 3 Active desonide (DesOwen) 0.05 % cream APPLY SPARINGLY AND GENTLY MASSAGE TOPICALLY TO THE AFFECTED AREA EVERY DAY 60 g 11 3 Active sertraline (Zoloft) 50 MG tablet Take 1 tablet (50 mg) by mouth in the morning. 30 tablet 3 3 Active bisacodyl (Bisacodyl EC) 5 MG EC tabletIndication s:Chronic constipation TAKE 1 TO 2 TABLETS BY MOUTH ONCE DAILY NEEDED FOR CONSTIPATION 30 tablet 2 4 Active mometasone (Elocon) 0.1 % lotion Apply on the scalp once a day, 2-3 times per week 60 mL 3 4 Active Sprintec 28 0.25-35 MG-MCG tablet TAKE 1 TABLET BY MOUTH EVERY DAY 84 tablet 3 4 Active mupirocin (Bactroban) 2 % ointment APPLY AROUND TOENAIL ONCE DAILY WHEN IT APPEARS RED 22 g 4 Active tretinoin (Retin-A) 0.025 % cream Apply topically at bedtime. 45 g 3 4 025 Active senna (Senokot) 8.6 MG tablet Take 1 tablet by mouth at bedtime. 4 Active clotrimazole-bet amethasone (Lotrisone) cream APPLY TOPICALLY TO THE AFFECTED AND SURROUNDING AREAS TWICE DAILY IN THE MORNING AND IN THE EVENING FOR 2 WEEKS 45 g 1 4 Active metroNIDAZOLE (Metrocream) 0.75 % cream APPLY THIN LAYER TOPICALLY TO THE AFFECTED AREA EVERY DAY 45 g 4 Active cholecalciferol (Vitamin D-3) 25 MCG (1000 UT) capsule TAKE 1 CAPSULE BY MOUTH DAILY IN THE MORNING 90 capsule 5 Active Active Problems Problem Noted Date Diagnosed Date Swallowing difficulty 09/21/2023 Assessment & Plan (08/30/2024 1:19 PM EST): - patient is unable to describe her symptoms and parents perceive that patient is having a problem swallowing due to grunting-like sound after oral intake - evaluated by speech pathologist with modified barium swallow. No aspiration. Recommended to feed slower. Assessment & Plan (05/02/2024 5:08 PM EST): - patient is unable to describe her symptoms and parents perceive that patient is having a problem swallowing due to grunting-like sound after oral intake - evaluated by speech pathologist with modified barium swallow. No aspiration. Recommended to feed slower. Assessment & Plan (09/21/2023 6:21 AM EDT): - patient is unable to describe her symptoms and parents perceive that patient is having a problem swallowing due to grunting-like sound after oral intake - will evaluate with modified swallowing evaluation and refer to speech therapy Impacted cerumen, bilateral 09/10/2023 Assessment & Plan (08/30/2024 1:20 PM EST): - Debrox 6.5% solutions twice daily given Assessment & Plan (09/10/2023 1:41 AM EDT): - Debrox 6.5% solutions twice daily given Scoliosis 08/24/2022 Assessment & Plan (08/30/2024 1:19 PM EST): -s/p surgery -Most recent X-ray shows no surgical complication Assessment & Plan (09/08/2023 6:32 AM EDT): -s/p surgery -Most recent X-ray shows no surgical complication Assessment & Plan (08/24/2022 1:02 PM EST): -s/p surgery -Most recent X-ray shows no surgical complication Acne vulgaris 04/16/2015 Assessment & Plan (08/30/2024 1:19 PM EST): - Previously tried benzoyl peroxide and topical clindamycin - Currently on combined OCP and metronidazole gel (prescribed by previous melt supervisor) - Will prescribe topical retinoid - Refer to Derm for further recommendation Assessment & Plan (05/02/2024 5:21 PM EST): - Previously tried benzoyl peroxide and topical clindamycin - Currently on combined OCP and metronidazole gel (prescribed by previous melt supervisor) - Will prescribe topical retinoid - Refer to Derm for further recommendation Assessment & Plan (09/10/2023 1:27 AM EDT): - Start Clotrimazole-Betamethasone cream twice daily for two weeks. Hirsutism 04/16/2015 Assessment & Plan (08/30/2024 1:19 PM EST): Previous medications: Vaniqa, prescribed by her melt supervisor, Dr. Gonzalez Normal androgen levels per [facility]. Assessment & Plan (05/02/2024 5:15 PM EST): Previous medications: Vaniqa, prescribed by her melt supervisor, Dr. Gonzalez Normal androgen levels per [facility]. Assessment & Plan (09/08/2023 6:33 AM EDT): Previous medications: Vaniqa, prescribed by her melt supervisor, Dr. Gonzalez Normal androgen levels per [facility]. Assessment & Plan (03/08/2023 10:16 AM EDT): Previous medications: Vaniqa, prescribed by her melt supervisor, Dr. Gonzalez Normal androgen levels per [facility]. Assessment & Plan (08/24/2022 12:59 PM EST): Previous medications: Vaniqa, prescribed by her melt supervisor, Dr. Gonzalez Normal androgen levels per [facility]. Hyperprolactinemia 04/16/2015 Assessment & Plan (08/30/2024 1:18 PM EST): Secondary to risperdone. Consider decreasing risperdal. Will keep at the lowest effective dose. Assessment & Plan (05/02/2024 5:15 PM EST): Secondary to risperdone. Consider decreasing risperdal. Will keep at the lowest effective dose. Assessment & Plan (09/21/2023 6:26 AM EDT): Secondary to risperdone. Will keep at the lowest effective dose. Assessment & Plan (03/08/2023 10:14 AM EDT): Secondary to risperdone. Will keep at the lowest effective dose. Recently neurologist lowered its dose. Will reconcile her medication. Assessment & Plan (08/24/2022 12:57 PM EST): Secondary to risperdone. Will keep at the lowest effective dose. Recently neurologist lowered its dose. Will reconcile her medication. 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 Her parents were concerned about its effect on prolactin level as she already has elevated prolactin, PCOS, and hirsutism previously. However, she was seen by a neurologist who recommended her current regimen. Her parents are now satisfied that this is the optimal treatment after considering all the alternatives. Most recent prolactin level on 02/16/23 was elevated. Continue Risperdal 0.25 mg bid for self-injurious behavior, as prescribed by neurology continuous improvement consultant. Continue Sertraline 50 mg daily. Consider decreasing risperdal. Assessment & Plan (05/02/2024 5:30 PM EST): Currently on Risperdal for this behavior. Her parents were concerned about its effect on prolactin level as she already has elevated prolactin, PCOS, and hirsutism previously. However, she was seen by a neurologist who recommended her current regimen. Her parents are now satisfied that this is the optimal treatment after considering all the alternatives. Most recent prolactin level on 02/16/23 was elevated. Continue Risperdal 0.25 mg bid for self-injurious behavior, as prescribed by neurology continuous improvement consultant. Continue Sertraline 50 mg daily. Consider decreasing risperdal. Assessment & Plan (09/08/2023 6:33 AM EDT): Currently on Risperdal for this behavior. Her parents were concerned about its effect on prolactin level as she already has elevated prolactin, PCOS, and hirsutism previously. However, she was seen by a neurologist who recommended her current regimen. Her parents are now satisfied that this is the optimal treatment after considering all the alternatives. Most recent prolactin level was normal Continue Risperdal 0.25 mg qhs and prn for self-injurious behavior, as suggested by neurology continuous improvement consultant. Upcoming appt in May 2019. Continue Sertraline 50 mg daily. Assessment & Plan (03/08/2023 10:16 AM EDT): Currently on Risperdal for this behavior. Her parents were concerned about its effect on prolactin level as she already has elevated prolactin, PCOS, and hirsutism previously. However, she was seen by a neurologist who recommended her current regimen. Her parents are now satisfied that this is the optimal treatment after considering all the alternatives. Most recent prolactin level was normal Continue Risperdal 0.25 mg qhs and prn for self-injurious behavior, as suggested by neurology continuous improvement consultant. Upcoming appt in May 2019. Continue Sertraline 50 mg daily. Assessment & Plan (08/24/2022 12:59 PM EST): Currently on Risperdal for this behavior. Her parents were concerned about its effect on prolactin level as she already has elevated prolactin, PCOS, and hirsutism previously. However, she was seen by a neurologist who recommended her current regimen. Her parents are now satisfied that this is the optimal treatment after considering all the alternatives. Most recent prolactin level was normal Continue Risperdal 0.25 mg qhs and prn for self-injurious behavior, as suggested by neurology continuous improvement consultant. Upcoming appt in May 2019. Continue Sertraline 50 mg daily. 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 Current medication: combined OCP Complicated with elevated prolactin level in a setting of Risperdal treatment for her biting and hitting behaviors. Previously tried spironolactone, but discontinued due to side effect. Agreed to continue risperidone at the lowest dose and contraceptive to keep her menstruation regular. Since improved with combined OCP, she was discharged from endocrinology. 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 Current medication: combined OCP Complicated with elevated prolactin level in a setting of Risperdal treatment for her biting and hitting behaviors. Previously tried spironolactone, but discontinued due to side effect. Agreed to continue risperidone at the lowest dose and contraceptive to keep her menstruation regular. Since improved with combined OCP, she was discharged from endocrinology. 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 Current medication: Estarylla / combined OCP Complicated with elevated prolactin level in a setting of Risperdal treatment for her biting and hitting behaviors. Previously tried spironolactone, but discontinued due to side effect. Agreed to continue risperidone at the lowest dose and contraceptive to keep her menstruation regular. Since improved with Mononessa, she was discharged. 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 Current medication: Estarylla / combined OCP Complicated with elevated prolactin level in a setting of Risperdal treatment for her biting and hitting behaviors. Previously tried spironolactone, but discontinued due to side effect. Agreed to continue risperidone at the lowest dose and contraceptive to keep her menstruation regular. Since improved with Mononessa, she was discharged. 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 Current medication: Estarylla / combined OCP Complicated with elevated prolactin level in a setting of Risperdal treatment for her biting and hitting behaviors. Previously tried spironolactone, but discontinued due to side effect. Agreed to continue risperidone at the lowest dose and contraceptive to keep her menstruation regular. Since improved with Mononessa, she was discharged. Quadriplegic cerebral palsy 04/02/2012 Assessment & Plan (08/30/2024 1:18 PM EST): In wheelchair. No pressure ulcer. Thad lift at home Speech pathology evaluation in 2011 - She is able to drink with straw. She is on a pureed-diet. She was previously going to [employer] day program. Continue support to her family with Enrique because she is dependent in her ADLs/IADLs. Swallowing evaluation done in September 2023. She is able to speak some words, such as thank you and call my name. She enjoys singing and drawing. She has a good sense of humor. Pt needs a lift sling, mesh full-body with commode opening. Large size. Script written. Assessment & Plan (05/02/2024 1:58 PM EST): In wheelchair. No pressure ulcer. Thad lift at home Speech pathology evaluation in 2011 - She is able to drink with straw. She is on a pureed-diet. She was previously going to [employer] day program. Continue support to her family with Enrique because she is dependent in her ADLs/IADLs. Swallowing evaluation done in September 2023. She is able to speak some words, such as thank you and call my name. She enjoys singing and drawing. She has a good sense of humor. Pt needs a lift sling, mesh full-body with commode opening. Large size. Script written. Assessment & Plan (09/08/2023 6:32 AM EDT): In wheelchair. No pressure ulcer. Thad lift at home Speech pathology evaluation in 2011 - She is able to drink with straw. She is on a pureed-diet. She was previously going to [employer] day program. Continue support to her family with Enrique because she is dependent in her ADLs/IADLs. She is able to speak some words, such as thank you and call my name. She enjoys singing and drawing. She has a good sense of humor. Pt needs a lift sling, mesh full-body with commode opening. Large size. Will write script. Assessment & Plan (03/08/2023 10:17 AM EDT): In wheelchair. No pressure ulcer. Thad lift at home Speech pathology evaluation in 2011 - She is able to drink with straw. She is on a pureed-diet. She was previously going to [employer] day program. Continue support to her family with Enrique because she is dependent in her ADLs/IADLs. She is able to speak some words, such as thank you and call my name. She enjoys singing and drawing. She has a good sense of humor. Pt needs a lift sling, mesh full-body with commode opening. Large size. Will write script. Assessment & Plan (08/24/2022 12:56 PM EST): In wheelchair. No pressure ulcer. Thad lift at home Speech pathology evaluation in 2011 - She is able to drink with straw. She is on a pureed-diet. She is going to [employer] day program. Continue support to her family with Enrique because she is dependent in her ADLs/IADLs. She is able to speak some words, such as thank you and call my name. She enjoys singing and drawing. She has a good sense of humor. Seborrheic dermatitis 04/02/2012 Assessment & Plan (08/30/2024 1:19 PM EST): - Apply Mometasone 0.1% lotion on the scalp once a day, 2-3 times a week. Assessment & Plan (05/02/2024 5:11 PM EST): - Apply Mometasone 0.1% lotion on the scalp once a day, 2-3 times a week. Assessment & Plan (09/10/2023 1:28 AM EDT): - Apply Mometasone 0.1% lotion on the scalp once a day, 2-3 times a week. Encounters Date Type Department Care Team Description 08/30/2024 3:15 PM EST Office Visit [facility] [address] [place] [phone] Mulu Martin MD Quadriplegic cerebral palsy (CMS/HCC) (Primary Dx); Hyperprolactinemia (CMS/HCC); Dysphagia, unspecified type; Chronic constipation; Scoliosis, unspecified scoliosis type, unspecified spinal region; PCOS (polycystic ovarian syndrome); Seborrheic dermatitis; Stereotypic movement disorder with self-injurious behavior; Intellectual disability; Impacted cerumen, bilateral; Hirsutism; Acne vulgaris; Wound, open axilla, left, initial encounter 08/30/2024 Travel 08/24/2024 Telephone [facility] [address] [place], [place] [phone] Prudence Ferguson MA chart prep 07/14/2024 Refill [facility] [address] [place], [place] [phone] Mulu Martin MD 06/20/2024 Refill [facility] [address] [place], [place] [phone] Mulu Martin MD from Last 3 Months Immunizations Name Administration Dates Next Due DTP 07/02/1992, 0,1988,1988,1988 Hep B, Adolescent or Pediatric 08/19/2000,1999,01/24/2000 Hib (PRP-T) 12/18/1989 IPV 07/29/1992, 0,1988,1988,1988 Influenza Injectable Quadriv alant Preservative Free IIV4 MDCK 04/07/2023 Influenza injectable quadriv alent IIV4 with preservative 04/16/2015 Influenza injectable quadriv alent preservative free 04/25/2022,03/26/2021,03/12/2020,2018,04/09/2017 Influenza, IIV3, injectable 05/23/2014,1 07/09/2010,04/02/2010,2002,04/26/2002,05/19/2001,06/10/2000,1 ,03/22/1998 Influenza, Split (incl. oscar fied surface antigen) 05/11/2013,04/02/2012 Influenza, seasonal, injecta ble, preservative free 03/29/2024,03/08/2016 MMR 05/31/1994,07/02/1992,07/01/1989 Moderna Covid-19 Vaccine 12+ 06/04/2021,10/30/19 21,10/01/2020 OPV 07/02/1992, 0,1988,1988,1988 Pfizer Covid-19 Vaccine 12+ 03/29/2024 Pfizer Covid-19 Vaccine 12+ Bivalent 04/30/2022 TD (adult), 2 Lf tetanus tox oid, preservative free, adsorbed 03/26/2021,04/01/2000 Tdap 10/02/2010 Family History Medical History Relation Name Comments Hypertension Father Sumit Sleep apnea Father Sumit Relation Name Status Comments Father Sumit Alive Mother Valentina Alive Social History Tobacco Use Types Packs/Day Years Used Date Smoking Tobacco: Never Smokeless Tobacco: Never Tobacco Cessation:Counseling Given: Not Answered Alcohol Use Standard Drinks/Week Comments Never 0 [...] Orientation Straight 04/28/2022 10 :19 AM EDT Last Filed Vital Signs Vital Sign Reading Time Taken Comments Blood Pressure 126/89 09/08/2023 2:50 PM EDT Pulse 96 08/30/2024 3:37 PM EST Temperature 35.6 ??C (96 ??F) 08/30/2024 3:37 PM EST Respiratory Rate 19 08/30/2024 3:37 PM EST Oxygen Saturation - - Inhaled Oxygen Concentration - - Weight 104 kg (228 lb 3.2 oz) 08/30/2024 3:37 PM EST Height - - Body Mass Index - - Plan of Treatment Health Maintenance Due Date Last Done Comments Pap Smear 2009 HPV/Cotest 2018 Tobacco Screening 04/25/2025 04/25/2024 SDOH Screening 08/30/2025 08/30/2024 DTaP/Tdap/Td Vaccines (8 - Td or Tdap) 03/26/2031 03/26/2021, 10/02/2010, 04/01/2000, Additional history exists Zoster Vaccines (1 of 2) 2038 RSV Patients and Patients Aged 60 years or older (1 - 1-dose 75+ series) 2063 HIB Vaccines Completed 12/18/1989 IPV Vaccines Completed 07/29/1992, 09/1992, 09/26/1989, Additional history exists Hepatitis B Vaccines Completed 08/19/2000, 04/01/2000, 01/24/2000 COVID-19 Vaccine Completed 03/29/2024, 07/2021, 06/04/2021, Additional history exists Influenza Vaccine Completed 03/29/2024, , 04/25/2022, Additional history exists Alcohol/Substance Use Screening Discontinued 08/30/2024 Cervical Cancer Screening Discontinued Depression Screening Discontinued Family Planning (PISQ) Discontinued HIV Screening Discontinued HPV Vaccines Aged Out No longer eligi ble based on patient's age to complete this topic Hepatitis A Vaccines Aged Out No long er eligible based on patient's age to complete this topic Hepatitis C Screening Discontinued Meningococcal Vaccine Aged Out No kimi migdalia eligible based on patient's age to complete this topic Pneumococcal Vaccine: Pediatrics (0 to 5 Years) and At-Risk Patients (6 to 49) Years) Aged Out No longer eligible based on patient's age to complete this topic RSV under 20 months Aged Out No longe r eligible based on patient's age to complete this topic Rotavirus Vaccines Aged Out No longer eligible based on patient's age to complete this topic Insurance [facility] C3 Advance Directives Documents on File Type Date Recorded 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
--- OUTSIDE RECORDS SUMMARY | 2024-08-31 14:01 | XMS_ITS | Encounter Summary ---
Author Organization [employer] Address [address] [facility] [address] [place] [address] Care Team Providers Care Fountain Jerk Name Role Phone Mulu Martin MD Primary Care Provider [phone] Encounter Details Date Type Department Care Team (Late st Contact Info) Description 08/30/2024 3:15 PM EST Office Visit [facility] [address] [place], [place] [phone] Mulu Martin MD [address] [place] [address] Quadriplegic cerebral palsy (CMS/HCC) (Primary Dx); Hyperprolactinemia (CMS/HCC); Dysphagia, unspecified type; Chronic constipation; Scoliosis, unspecified scoliosis type, unspecified spinal region; PCOS (polycystic ovarian syndrome); Seborrheic dermatitis; Stereotypic movement disorder with self-injurious behavior; Intellectual disability; Impacted cerumen, bilateral; Hirsutism; Acne vulgaris; Wound, open axilla, left, initial encounter Social History Tobacco Use Types Packs/Day Years Used Date Smoking Tobacco: Never Smokeless Tobacco: Never Alcohol Use Standard Drinks/Week Comments Never 0 (1 standard drink = 0.6 oz pur e alcohol) Housing Stability Answer Date Recorded What is your housing situation today? I have dewayne ehath 08/30/[address] you li [...] AM EDT documented as of this encounter Last Filed Vital Signs Vital Sign Reading Time Taken Comments Blood Pressure - - Pulse 96 08/30/2024 3:37 PM EST Temperature 35.6 ??C (96 ??F) 08/30/2024 3:37 PM EST Respiratory Rate 19 08/30/2024 3:37 PM EST Oxygen Saturation - - Inhaled Oxygen Concentration - - Weight 104 kg (228 lb 3.2 oz) 08/30/2024 3:37 PM EST Height - - Body Mass Index - - documented in this encounter Miscellaneous Notes * Assessment & Plan Note - Janice Willson MA - 08/30/2024 1:20 PM ESTAssociated Problem(s): Impacted cerumen, bilateral - Debrox 6.5% solutions twice daily given * Assessment & Plan Note - Janice Willson MA - 08/30/2024 1:20 PM ESTAssociated Problem(s): Stereotypic movement disorder with self-injurious behavior Currently on Risperdal for this behavior. Her [...] for self-injurious behavior, as prescribed by neurology store consultant. Continue Sertraline 50 mg daily. Consider decreasing risperdal. * Assessment & Plan Note - Janice Willson MA - 08/30/2024 1:19 PM ESTAssociated Problem(s): Hirsutism Previous medications: Vaniqa, prescribed by her control operator flow coat, Dr. Gonzalez Normal androgen levels per [facility] End[facility]. * Assessment & Plan Note - Janice Willson MA - 08/30/2024 1:19 PM ESTAssociated Problem(s): Acne vulgaris - Previously tried benzoyl peroxide and topical clindamycin - Currently on combined OCP and metronidazole gel (prescribed by previous control operator flow coat) - Will prescribe topical retinoid - Refer to Derm for further recommendation * Assessment & Plan Note - Janice Willson MA - 08/30/2024 1:19 PM ESTAssociated Problem(s): Seborrheic dermatitis - Apply Mometasone 0.1% lotion on the scalp once a day, 2-3 times a week. * Assessment & Plan Note - Janice Willson MA - 08/30/2024 1:19 PM ESTAssociated Problem(s): PCOS (polycystic ovarian syndrome) Ticket Agent: [facility], last seen in December 2014 Symptoms: heavy [...] combined OCP, she was discharged from endocrinology. * Assessment & Plan Note - Janice Willson MA - 08/30/2024 1:19 PM ESTAssociated Problem(s): Scoliosis -s/p surgery -Most recent X-ray shows no surgical complication * Assessment & Plan Note - Janice Willson MA - 08/30/2024 1:19 PM ESTAssociated Problem(s): Swallowing difficulty - patient is unable to describe her symptoms and parents perceive that patient is having a problem swallowing due to grunting-like sound after oral intake - evaluated by speech pathologist with modified barium swallow. No aspiration. Recommended to feed slower. * Assessment & Plan Note - Janice Willson MA - 08/30/2024 1:18 PM ESTAssociated Problem(s): Chronic constipation - continue fiber-rich diet - continue senna - bisocodyl prn * Assessment & Plan Note - Janice Willson MA - 08/30/2024 1:18 PM ESTAssociated Problem(s): Quadriplegic cerebral palsy (CMS/HCC) In wheelchair. No pressure ulcer. Thad lift at home Speech pathology evaluation in 2011 - She is able to drink with straw. She is on a pureed-diet. She was previously going to [facility] program. Continue support to her family with [employer] because she is dependent in her ADLs/IADLs. Swallowing evaluation done in September 2023. She is able to speak some words, such as thank you and call my name. She enjoys singing and drawing. She has a good sense of humor. Pt needs a lift sling, mesh full-body with commode opening. Large size. Script written. * Assessment & Plan Note - Janice Willson MA - 08/30/2024 1:18 PM ESTAssociated Problem(s): Hyperprolactinemia (CMS/HCC) Secondary to risperdone. Consider decreasing risperdal. Will keep at the lowest effective dose. documented in this encounter Plan of Treatment Scheduled Orders Name Type Priority Associated Diagnoses Orde r Schedule Wound culture Microbiology Routine Wound, open axilla, left, initial encounter Expected: 08/30/2024 (Approximate), Expires: 08/30/2025 documented as of this encounter Visit Diagnoses Diagnosis Quadriplegic cerebral palsy (CMS/HCC)- Primary Quadriplegic infantile cerebral palsy Hyperprolactinemia (CMS/HCC) Other and unspecified anterior pituitary hyperfunction Dysphagia, unspecified type Chronic constipation Unspecified constipation Scoliosis, unspecified scoliosis type, unspecified spinal region PCOS (polycystic ovarian syndrome) Polycystic ovaries Seborrheic dermatitis Unspecified seborrheic dermatitis Stereotypic movement disorder with self-injurious behavior Stereotypic movement disorder Intellectual disability Unspecified mental retardation Impacted cerumen, bilateral Hirsutism Acne vulgaris Other acne Wound, open axilla, left, initial encounter documented in this encounter Care Teams Fountain Jerk Relationship Specialty Start Date End Date Mulu Martin MD [address] [place] [address] PCP - General Family Medicine 06/29/18 documented as of this encounter
--- OUTSIDE RECORDS SUMMARY | 2024-08-31 14:01 | XMS_ITS | Encounter Summary ---
Author Organization [employer] Address [address] [facility] [address] [place] [address] Care Team Providers Care Dean Of Boys Name Role Phone Mulu Martin MD Primary Care Provider [phone] Reason for Visit * Reason Onset Date Comments chart prep 08/24/2024 Encounter Details Date Type Department Care Team ([facility] st Contact Info) Description 08/24/2024 Telephone [facility] [address] [place] [address] Prudence Ferguson MA chart prep Social History Tobacco Use Types Packs/Day Years Used Date Smoking Tobacco: Never Smokeless Tobacco: Never Alcohol Use Standard Drinks/Week Comments Never 0 (1 standard drink = 0.6 oz pur e alcohol) Housing Stability Answer Date Recorded What is your housing situation today? I have dewayne jeo 08/28/[address] you li [...] AM EDT documented as of this encounter Miscellaneous Notes * Telephone Encounter - Prudence Ferguson MA - 08/24/2024 3:36 PM EST ..chart Prep Labs: not applicable Images: not applicable Vaccines due: Updated Referrals: Completed Screenings: Not Applicable Overdue care gaps: Sbirt documented in this encounter Plan of Treatment Not on file documented as of this encounter Visit Diagnoses Not on filedocumented in this encounter Care Teams Dean Of Boys Relationship Specialty Start Date End Date Mulu Martin MD [address] [place] [address] PCP - General Family Medicine 06/29/18 documented as of this encounter
--- OUTSIDE RECORDS SUMMARY | 2024-08-31 14:01 | XMS_ITS | Clinical Summary ---
Author Organization [facility] Address [address] [place] [phone] Phone Care Team Providers Care Steward/Stewardess Night Name Role Phone Unavailable Primary Care Provider Unavailabl e Immunizations Immunization Administration Dates Next Due DTP 07/02/1992, 0,1988,1988,1988 Hep B, ped/adol 08/19/2000,04/01/2000,01/24/2000 Hib (PRP-T) 12/18/1989 Influenza Split 04/26/2002, 1,06/10/2000,1998,03/22/1998 Influenza, injectable, trivalent 003,04/26/2002,05/19/2001,1999,04/16/1999,03/22/1998 MMR 05/31/1994,07/02/1992,07/01/1989 OPV 07/02/1992, 0,1988,1988,1988 Td (adult) (MBL), 2 Lf tetan us toxoid, PF, adsorbed 04/01/2000 Family History Relation Name Status Comments Father Father: Hyperte nsion Maternal Grandmother Materna l grandmother: Diabetes mellitus Mother Alive Mother: Diabete s mellitus Other Family history of Diabetes mellitus Paternal Grandfather Paterna l grandfather: Asthma Social History Tobacco Use Types Packs/Day Years Used Date Smoking Tobacco: Never Assessed Comments Unknown Sex and Gender Information Value Date Recorded Sex Assigned at Not on file Legal Sex Female 4:21 PM EDT Gender Identity Not on file Sexual Orientation Not on file Plan of Treatment Health Maintenance Due Date Last Done Comments DTaP,Tdap,and Td Vaccines (6 - Tdap) 04/02/2000 04/01/2000, 07/02/1992, 09/25/1989, Additional history exists Varicella Vaccines (1 of 2 - 13+ 2-dose series) 2001 Influenza Vaccines (#1) 2024 05/29/20, 04/26/2002, 04/26/2002, Additional history exists COVID-19 Vaccine ( season) 2024 HIB Vaccines Completed 12/18/1989 IPV Vaccines Completed 07/02/1992, 08/29, 1988, Additional history exists MMR Vaccines Completed 05/31/1994, 09/1992, 07/01/1989 Hepatitis B Vaccines Completed 08/19/2000, 04/01/2000, 01/24/2000 HPV Vaccines Aged Out No longer eligi ble based on patient's age to complete this topic Hepatitis A Vaccines Aged Out No long er eligible based on patient's age to complete this topic Men B Vaccine Aged Out No longer elig ible based on patient's age to complete this topic Meningococcal Vaccine Aged Out No kimi migdalia eligible based on patient's age to complete this topic Pneumococcal Vaccine Aged Out No long er eligible based on patient's age to complete this topic
== END 2024-08-30 00:01 | disposition home or self-care (01) ==
LOC: HO.HHCLNP
PROVIDERS: Visit Provider Family Medicine
DX: S41.102A Unspecified open wound of left upper arm, initial encounter (principal)
CPT/HCPCS: 87070; 87077; 87186; 87205

== ENCOUNTER 2024-10-18 11:04 | Outpatient (AMB) | payer MEDICAID, SELFPAY ==
[2024-10-18 11:19] VITALS: BP 115/70; PULSE 96
--- NOTE | 2024-10-18 11:19 | A.OFFVIS_ITS ---
Vital Signs 10/18/24 11:19 Height 5 ft 1 in BP 115/70 Blood Pressure Location Rt brachial Position Sitting Pulse 96 Comment wheelchair bound Intake Visit Reasons: [facility] 6 months follow up Intake Note: Patient in office today in 6 months follow up of [facility] CC: Patient's parents report that she is doing very good. Evp Sales Required: Yes Allergies No Known Allergies [No Known Allergies*] Allergy (Verified 10/18/24 11:23) HPI HPI [facility] 6 months follow up: Details: Assessment & Plan (1) Chronic idiopathic constipation: Code(s): K59.04 - Chronic idiopathic constipation Category: Medical (2) Gas bloat syndrome: Code(s): K92.89 - Other specified diseases of the digestive system Category: Medical Plan [place] #Vickie Zaldivar She is now doing very well with the senna, this has also improved her swallowing since her general GI motility is improved. Her family is very happy with this. ROV 6 mos. Medications: Refilled sennosides (Senna Laxative) 8.6 mg PO BEDTIME 30 tabs 6RF K59.04 - Chronic idiopathic constipation TODAY'S VISIT [place] #Liz Zaldivar She is here today with her parents who are her caregivers. She continues to do well. They are soon moving permanently to [place], so they will not need a follow up appt. [facility] Medical History Post-surgical scoliosis Surgical History Temple teeth extracted Family History Maternal Aunt Colon cancer Maternal Aunt Ovarian cancer Maternal Aunt Skin cancer Maternal Uncle Prostate cancer Father HTN (hypertension) Paternal Grandmother Heart disease Social History Alcohol intake: never Patient Tobacco Use Status: Never used Tobacco Review of Systems Const Denies fatigue, Denies fever(s), Denies night sweats, Denies poor appetite and Denies weight loss ENT Reports Normal hearing present, Denies dental pain, Denies dysphagia, Denies hearing loss, Denies mouth pain, Denies odynophagia, Denies throat swelling, Denies tongue swelling and Reports other (Dentition adequate) Card Reports no additional complaints Resp Reports no additional complaints GI Details: Denies abdominal pain, Denies melena, Denies bloating, Denies hematochezia, Reports constipation, Denies GI cramping, Denies dysphagia, Denies excessive flatus, Denies early satiety, Denies heartburn, Denies diarrhea, Denies nausea, Denies odynophagia, Denies vomiting and Denies hematemesis Skin/Breast Denies pruritus, Denies lesions, Denies rash and Denies jaundice Neuro Reports Normal hearing present and Denies Abnormal speech present Endo Denies fatigue Aller/Immun Denies throat swelling and Denies tongue swelling Physical Exam Vital Signs: Last Vital Signs Pulse 96 10/18/24 11:19 BP 115/70 10/18/24 11:19 Const General: cooperative, no acute distress, well developed and well groomed Nutritional Appearance: average body habitus and well nourished Orientation/consciousness: oriented to person, oriented to place and oriented to time Limitations: behavioral limitations, language barrier, physical limitations and wheelchair HEENT Head: Yes normocephalic and Yes atraumatic Eyes General: appearance normal, both eyes and all related structures Pupils: Equal, round and reactive pupils present Neck Neck: Yes normal visual inspection and Yes no lymphadenopathy Thyroid: Thyroid normal Resp Effort & Inspection: normal respiratory effort and able to speak in complete sentences Auscultation: clear to auscultation bilaterally Cardio Rate: regular rate Rhythm: regular rhythm Heart sounds: Normal, physiologic split S2 sound present Peripheral pulses: radial pulses present and posterior tibial pulses present GI Inspection: No distended and No Abdominal panniculus present Palpation (GI): Soft to palpation, nontender, no guarding, not rigid and No hepatosplenomegaly present Percussion: Yes normal to percussion Auscultation: normal bowel sounds Rectal Exam - Female: deferred Skin General skin exam: no rashes or lesions noted, turgor normal, skin not dry, no jaundice, No spider nevi and no striae Rashes: no rashes Nails: normal Neuro General: oriented to person, oriented to place and oriented to time Cranial nerves: Yes Equal, round and reactive pupils present and Yes Normal hearing present Speech: No Abnormal speech present Extrem General: Yes normal to inspection, No clubbing, No cyanosis and No edema Psych Appearance: grossly normal and well kempt Mental Status: other Speech and movement: Mute speech present Affect: normal affect Attitude: cooperative Thought process: Other thought process findings present Insight: Poor insight present (Psych) Judgement: Poor judgement present (Psych) Assessment & Plan Assessment & Plan (1) Chronic idiopathic constipation: Code(s): K59.04 - Chronic idiopathic constipation Category: Medical Plan [place] #Liz Zaldivar She is here today with her parents who are her caregivers. She continues to do well. They are soon moving permanently to [place], so they will not need a follow up appt. Medications: New bisacodyl 5 - 10 mg (1 - 2 x 5 mg) PO DAILY PRN 60 tabs 3RF constipation Refilled sennosides (Senna Laxative) 8.6 mg PO BEDTIME 30 tabs 6RF K59.04 - Chronic idiopathic constipation Coding Level of Care Code Est Pt Level 3 (64833) Diagnoses Chronic idiopathic constipation K59.04
--- OUTSIDE RECORDS SUMMARY | 2024-10-18 13:15 | XMS_ITS | Encounter Summary ---
Author Organization [employer] Address [address] [facility] [address] [place] [address] Care Team Providers Care Machining Engineer Name Role Phone Muul Martin MD Primary Care Provider [phone] Reason for Referral * Consultation (Routine) - Closed Specialty Diagnoses / Procedures Referred By Patience neumann Referred To Contact Gastroenterology Diagnoses Flatulence Dysphagia, unspecified type Quadriplegic cerebral palsy (CMS/HCC) Mulu Martin MD [address] [place] [address] Phone: tel: fax: [facility] Referral ID Status Reason Start Date Expiration Date V isits Requested Visits Authorized [id number] Closed Specialty Services Required 10/20/2023 10/19/2024 6 6 Encounter Details Date Type Department Care Team (Late st Contact Info) Description 10/16/2023 Orders Only [facility] [address] [place] [phone] Mulu Martin MD [address] [place], [place] [phone] Flatulence (Primary Dx); Dysphagia, unspecified type; Quadriplegic [...] as of this encounter Plan of Treatment Upcoming Encounters Date Type Department Care Team (Late st Contact Info) Description 10/21/2024 1:15 PM EDT Office Visit [facility] [address] [place], [place] [phone] Tiesha Cheung MD [address] [place] [address] Scheduled Referrals Name Type Priority Associated Diagnoses Order Schedule Referral to Gastroenterology Outpatient Referral Routine Flatulence Dysphagia, unspecified type Quadriplegic cerebral palsy (CMS/HCC) Expected: 10/16/2023 (Approximate), Expires: 10/15/2024 documented as of this encounter Procedures Procedure Name Priority Date/Time Associated Diagnosis Comments GRAM STAIN Routine 08/30/2024 12:00 AM EST Flatulence SLIDE REVIEW Routine 03/03/2024 7:52 AM EDT Flatulence CBC WITH AUTO DIFFERENTIAL Routine 03/03/2024 7:52 AM EDT Flatulence COMPREHENSIVE METABOLIC PANEL Routine 03/03/2024 7:52 AM EDT Flatulence documented in this encounter Results * Gram stain (08/30/2024 12:00 AM EST) 08/30/2024 08/30/2024 Comment:Axilla Lt Narrative [facility] - 09/02/2024 8:01 AM EST Gram stain results: 3+ polys 1+ Gram-negative rods Serratia marcescens Quant Org ID [id number] Serratia marcescens: Cefazolin >=32(R) Serratia marcescens: Cefepime <=0.12(S) Serratia marcescens: Ceftriaxone <=0.25(S) Serratia marcescens: Ciprofloxacin 0.12(S) Serratia marcescens: Gentamicin <=1(S) Serratia marcescens: Trimethoprim/Sulfamethoxazole <=20(S) Specimen Source: Axilla Left Mulu Martin MD LAB MICROBIOLOGY - GENERAL ORDER AMINTA Final Result Performing Organization Address [facility]/ZIP Co de Phone Number [facility] [address] [place] [phone] * Slide Review (03/03/2024 7:52 AM EDT) Slide Review VERIFIED [facility] 03/03/2024 7:52 AM EDT 03/03/2024 7:52 AM EDT us Generic External Data Provider LAB BLOOD ORDERAB LES Final Result Performing Organization Address [facility] Co de Phone Number [facility] [address] [place] [phone] * (ABNORMAL) CBC auto differential (03/03/2024 7:52 AM EDT) White Blood Count 9.5 4.8 - 10.8 X10*3/uL [facility] Red Blood Count 4.70 4.20 - 5.50 X10*6/uL [facility] Hemoglobin 14.1 12.0 - 16.0 g/dl [facility] Hematocrit 41.6 37.0 - 47.0 % [facility] Mean Corpuscular Volume 88.5 80.0 - 98.0 fL [facility] Mean Corpuscular Hemoglobin 30.0 27.0 - 33.0 pg [facility] Mean Corpuscular HGB Conc 33.9 31.0 - 35.0 g/dl [facility] Red Cell Distribution Width 16.1(H) 11.0 - 16.0 % [facility] Platelet Count TNP 160 - 400 X10*3/uL [facility] Comment:Unable to obtain an accurate platelet count. Neutrophils Percent Auto 56.3 45 - 73 % [facility] Imm Gran Pct Auto 0.2 0.0 - 0.4 % [facility] Lymphocytes Percent Auto 35.9 20 - 40 % [facility] Monocytes Percent Auto 4.7 2 - 11 % [facility] Eosinophils Percent Auto 2.3 0 - 4 % [facility] Basophils Percent Auto 0.6 0 - 2 % [facility] NRBC Pct Auto 0.0 0.0 - 0.2 /100WBC [facility] Neutrophils Absolute Auto 5.3 2.0 - 8.3 x10*3/uL [facility] Imm Gran Abs Auto 0.02 0.00 - 0.03 X10*3/uL [facility] Lymphocytes Absolute Auto 3.4 1.2 - 4.9 X10*3/uL [facility] Monocytes Absolute Auto 0.4 0.1 - 1.2 X10*3/uL [facility] Eosinophils Absolute Auto 0.2 0.0 - 0.4 X10*3/uL [facility] Basophils Absolute Auto 0.1 0.0 - 0.2 X10*3/uL [facility] NRBC Abs Auto 0.000 0.0 - 0.012 X10*3/uL [facility] 03/03/2024 7:52 AM EDT 03/03/2024 7:52 AM EDT us Generic External Data Provider LAB BLOOD ORDERAB LES Edited Result - Final Performing Organization Address City/[facility]/ZIP Co de Phone Number [facility] [address] [place] [phone] * (ABNORMAL) Comprehensive Metabolic Panel (03/03/2024 7:52 AM EDT) Sodium 137 135 - 145 mmol/L [facility] Potassium 3.9 3.3 - 5.1 mmol/L [facility] Chloride 105 96 - 108 mmol/L [facility] Carbon Dioxide 22 22 - 29 mmol/L [facility] Anion Gap 14 12 - 20 [facility] Urea Nitrogen (BUN) 7(L) 9 - 16 mg/dL [facility] Creatinine, Serum 0.64 0.5 - 1.4 mg/dL [facility] Estimated Glomerular Filt Rate >60 [facility] Comment:NOTE: For -Am erican individuals, multiply the result by 1.210.Chronic Kidney Disease: Estimated GFR < 60 mL/min/1.61z3Wapuym Kidney Disease: Estimated GFR < 15 mL/min/1.73m2 Glucose 77 60 - 115 mg/dL [facility] Calcium 9.7 8.4 - 10.2 mg/dL [facility] Bilirubin, Total 0.3 0.0 - 1.0 mg/dL [facility] Aspartate Amino Transferase 22 5 - 31 U/L [facility] Alanine Aminotransferase 19 0 - 31 U/L [facility] Total Protein 7.6 6.5 - 8.0 g/dL [facility] Albumin Level 4.0 3.5 - 5.0 g/dL [facility] Alkaline Phosphatase 77 39 - 117 U/L [facility] 03/03/2024 7:52 AM EDT 03/03/2024 7:52 AM EDT us Generic External Data Provider LAB BLOOD ORDERAB LES Final Result [facility] [address] [place] [phone] documented in this encounter Visit Diagnoses Diagnosis Flatulence- Primary Flatulence, eructation, and gas pain Dysphagia, unspecified type Quadriplegic cerebral palsy (CMS/HCC) Quadriplegic infantile cerebral palsy documented in this encounter Care Teams Machining Engineer Relationship Specialty Start Date End Date Mulu Martin MD [address] [place] [phone] PCP - General Family Medicine 06/29/18 documented as of this encounter
--- OUTSIDE RECORDS SUMMARY | 2024-10-18 13:15 | XMS_ITS | Clinical Summary ---
Author Organization [employer] Address [address] [place] [address] 7[address] [place] [address] Care Team Providers Care Meter Tester Polyphase Name Role Phone Mulu Martin MD Primary Care Provider [phone] Allergies No known active allergies Medications econazole nitrate 1 % cream APPLY TOPICALLY TO THE AFFECTED AND SURROUNDING AREAS TWICE DAILY 05/20/20 22 Active risperiDONE (RisperDAL) 0.5 MG tablet TAKE 1 TABLET BY MOUTH EVERY DAY AT BEDTIME 07/28/19 23 Active desonide (DesOwen) 0.05 % cream APPLY SPARINGLY AND GENTLY MASSAGE TOPICALLY TO THE AFFECTED AREA EVERY DAY 60 g 11 02/17/20 23 Active sertraline (Zoloft) 50 MG tablet Take 1 tablet (50 mg) by mouth in the morning. 30 tablet 3 05/28/20 23 Active bisacodyl (Bisacodyl EC) 5 MG EC tabletIndicatio ns:Chronic constipation TAKE 1 TO 2 TABLETS BY MOUTH ONCE DAILY NEEDED FOR CONSTIPATION 30 tablet 2 07/24/19 24 Active Sprintec 28 0.25-35 MG-MCG tablet TAKE 1 TABLET BY MOUTH EVERY DAY 84 tablet 3 12/09/19 24 Active mupirocin (Bactroban) 2 % ointment APPLY AROUND TOENAIL ONCE DAILY WHEN IT APPEARS RED 22 g 02/02/20 24 Active tretinoin (Retin-A) 0.025 % cream Apply topically at bedtime. 45 g 3 04/28/20 24 2024 Active senna (Senokot) 8.6 MG tablet Take 1 tablet by mouth at bedtime. 03/16/20 24 Active clotrimazole-be tamethasone (Lotrisone) cream APPLY TOPICALLY TO THE AFFECTED AND SURROUNDING AREAS TWICE DAILY IN THE MORNING AND IN THE EVENING FOR 2 WEEKS 45 g 1 06/20/20 24 Active metroNIDAZOLE (Metrocream) 0.75 % cream APPLY THIN LAYER TOPICALLY TO THE AFFECTED AREA EVERY DAY 45 g 06/20/20 24 Active mometasone (Elocon) 0.1 % lotion APPLY TO THE SCALP ONCE DAILY 2-3 TIMES PER WEEK 60 mL 3 09/22/19 25 Active cholecalciferol (Vitamin D-3) 25 MCG (1000 UT) capsule TAKE 1 CAPSULE BY MOUTH DAILY IN THE MORNING 90 capsule 10/13/19 25 Active mometasone (Elocon) 0.1 % lotion Apply on the scalp once a day, 2-3 times per week 60 mL 3 09/08/19 24 2024 Discontinued cholecalciferol (Vitamin D-3) 25 MCG (1000 UT) capsule TAKE 1 CAPSULE BY MOUTH DAILY IN THE MORNING 90 capsule 07/14/19 25 2024 Discontinued doxycycline (Vibra-Tabs) 100 MG tabletIndicatio ns:Hidradenitis axillaris Take 1 tablet (100 mg) by mouth 2 times daily. Take with a full glass of water and do not lie down for at least 30 minutes after. 60 tablet 09/17/19 25 2024 Hospital, Clinic, or Other Facility Administered Medication Ordered Dose Route Frequency Start Date End Date Status triamcinolone acetonide (Kenalog) injection 10 mgIndications:Hidradenitis axillaris 10 mg IX Once 09/16/2024 Active Active Problems Problem Noted Date Diagnosed Date Open wound of left axillary region 09/14/2024 Swallowing difficulty 09/21/2023 Assessment & Plan (08/30/2024 [...] complication Acne vulgaris 04/16/2015 Assessment & Plan (09/04/2024 1:23 PM EDT): - Previously tried benzoyl peroxide and topical clindamycin - Currently on combined OCP and metronidazole gel (prescribed by previous access representative) - Continue topical retinoid - Referred to Derm for further recommendation in Mar 2024; check its status Assessment & Plan (05/02/2024 5:21 PM EST): - Previously tried benzoyl peroxide and topical clindamycin - Currently on combined OCP and metronidazole gel (prescribed by previous access representative) - Will prescribe topical retinoid - Refer to Derm for further recommendation Assessment & Plan (09/10/2023 1:27 AM EDT): - Start Clotrimazole-Betamethasone cream twice daily for two weeks. Hirsutism 04/16/2015 Assessment & Plan (08/30/2024 1:19 PM EST): Previous medications: Vaniqa, prescribed by her access representative, Dr. Gonzalez Normal androgen levels per [facility]. Assessment & Plan (05/02/2024 5:15 PM EST): Previous medications: Vaniqa, prescribed by her access representative, Dr. Gonzalez Normal androgen levels per [facility]. Assessment & Plan (09/08/2023 6:33 AM EDT): Previous medications: Vaniqa, prescribed by her access representative, Dr. Gonzalez Normal androgen levels per [facility]. Assessment & Plan (03/08/2023 10:16 AM EDT): Previous medications: Vaniqa, prescribed by her access representative, Dr. Gonzalez Normal androgen levels per [facility]. Assessment & Plan (08/24/2022 12:59 PM EST): Previous medications: Vaniqa, prescribed by her access representative, Dr. Gonzalez Normal androgen levels per [facility]. Hyperprolactinemia 04/16/2015 Assessment & Plan (08/30/2024 [...] for self-injurious behavior, as prescribed by neurology inbound sales consultant. Continue Sertraline 50 mg daily. Consider [...] for self-injurious behavior, as prescribed by neurology inbound sales consultant. Continue Sertraline 50 mg daily. Consider [...] for self-injurious behavior, as suggested by neurology inbound sales consultant. Upcoming appt in May 2019. Continue [...] for self-injurious behavior, as suggested by neurology inbound sales consultant. Upcoming appt in May 2019. Continue [...] for self-injurious behavior, as suggested by neurology inbound sales consultant. Upcoming appt in May 2019. Continue [...] Assessment & Plan (08/30/2024 1:19 PM EST): Inspector Welded Parts: Deanna, last seen in December 2014 Symptoms: [...] Assessment & Plan (05/02/2024 5:11 PM EST): Inspector Welded Parts: Deanna, last seen in December 2014 Symptoms: [...] Assessment & Plan (09/08/2023 6:32 AM EDT): Inspector Welded Parts: Deanna, last seen in December 2014 Symptoms: [...] Assessment & Plan (03/08/2023 10:15 AM EDT): Inspector Welded Parts: Deanna, last seen in December 2014 Symptoms: [...] Assessment & Plan (08/24/2022 12:58 PM EST): Inspector Welded Parts: Deanna, last seen in December 2014 Symptoms: [...] Encounters Date Type Department Care Team Description 10/12/2024 Refill [facility] [place] [address] Mulu Martin MD 09/20/2024 Refill [facility] [place] [address] Mulu Martin MD 09/16/2024 11:45 AM EDT Office Visit [facility] MONET Trivedi [phone] Tiesha Cheung MD Hidradenitis axillaris (Primary Dx) 09/16/2024 Travel 09/14/2024 Telephone [facility] [place] [address] Mulu Martin MD 09/09/2024 Population Health Risk Score [facility] ([facility]) Department [address] [place] [phone] Provider, Population Health Generic 09/02/2024 Orders Only [facility] [place] [address] Mulu Martin MD 08/30/2024 3:15 PM EST Office Visit [facility] [place] [address] Mulu Martin MD Quadriplegic cerebral palsy (CMS/HCC) (Primary Dx); Hyperprolactinemia (CMS/HCC); Dysphagia, unspecified type; Chronic constipation; Scoliosis, unspecified scoliosis type, unspecified spinal region; PCOS (polycystic ovarian syndrome); Seborrheic dermatitis; Stereotypic movement disorder with self-injurious behavior; Intellectual disability; Impacted cerumen, bilateral; Hirsutism; Acne vulgaris; Wound, open axilla, left, initial encounter 08/30/2024 Travel 08/24/2024 Telephone [facility] [address] [place] [address] [phone] Prudence Ferguson MA chart prep from Last 3 Months Immunizations Name Administration [...] 05/31/1994,07/02/1992,07/01/1989 Moderna Covid-19 Vaccine 12+ 06/04/2021,10/30/19 21,10/01/2020 OPV, Trivalent 07/02/1992, 0,1988,1988,1988 Pfizer Covid-19 Vaccine 12+ 03/29/2024 [...] Mass Index - - Plan of Treatment Upcoming Encounters Date Type Department Care Team (Late st Contact Info) Description 10/21/2024 1:15 PM EDT Office Visit [facility] [address] [facility] [place] [address] Tiesha Cheung MD [address] [place] [address] Health Maintenance Due Date Last Done Comments [...] on patient's age to complete this topic Procedures Procedure Name Priority Date/Time Associated Diagnosis Comments GRAM STAIN Routine 08/30/2024 12:00 AM EST Flatulence from Last 3 Months Results * Gram stain (08/30/2024 12:00 AM EST) 08/30/2024 08/30/2024 Comment:Axilla Lt Narrative [facility] - 09/02/2024 8:01 AM EST Gram stain results: 3+ polys 1+ Gram-negative rods Serratia marcescens Quant Org ID [id number] Serratia marcescens: Cefazolin >=32(R) Serratia marcescens: Cefepime <=0.12(S) Serratia marcescens: Ceftriaxone <=0.25(S) Serratia marcescens: Ciprofloxacin 0.12(S) Serratia marcescens: Gentamicin <=1(S) Serratia marcescens: Trimethoprim/Sulfamethoxazole <=20(S) Specimen Source: Axilla Left us Mulu Martin MD LAB MICROBIOLOGY - GENERAL ORDER AMINTA Final Result [facility] [address] [place] [phone] from Last 3 Months [facility] Advance Directives Documents on File Type Date Recorded 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
--- OUTSIDE RECORDS SUMMARY | 2024-10-18 13:15 | XMS_ITS | Encounter Summary ---
Author Organization [facility] Address [address] [place] [address] Phone Care Team Providers Care Clinical Trial Leader Name Role Phone Theresa Peña MD Primary Care Provider [phone] Encounter Details Date Type Department Care Team (Late st Contact Info) Description 02/12/2017 Conversion Encounter [facility] [place] [address] [place] [address] Social History Tobacco Use Types Packs/Day Years [...] on filedocumented in this encounter Care Teams Clinical Trial Leader Relationship Specialty Start Date End Date Theresa Peña MD [address] [place] [address] PCP - General 02/06/17 10/08/22 documented as of this encounter
--- OUTSIDE RECORDS SUMMARY | 2024-10-18 13:15 | XMS_ITS | Clinical Summary ---
Author Organization [facility] Address [address] [place] [phone] Phone Care Team Providers Care In Home Caregiver Name Role Phone Unavailable Primary Care Provider [...]
== END 2024-10-18 12:06 | disposition home or self-care (01) ==
LOC: HO.HGI 11:05
PROVIDERS: PCP Family Medicine; Visit Provider Nurse Practitioner
DX: K59.04 Chronic idiopathic constipation (principal)
CPT/HCPCS: 99213

== ENCOUNTER → 2024-10-18 11:04 | Outpatient (BNVA) | payer MEDICAID, SELFPAY | PROVIDERS: PCP Family Medicine; Visit Provider Nurse Practitioner | DX: K59.04 Chronic idiopathic constipation (principal); K92.89 Other specified diseases of the digestive system | CPT/HCPCS: 99212 ==

== ENCOUNTER 2025-03-08 13:34 | Outpatient (AMB) | payer MEDICAID, SELFPAY ==
--- NOTE | 2025-03-08 13:35 | A.OFFVIS_ITS ---
Vital Signs 03/08/25 13:35 Height 5 ft 1 in Intake Visit Reasons: f/u Accompanied by: Family/Other Allergies No Known Allergies (No Known Allergies*) Allergy (Verified 03/08/25 13:44) Medication List - Last Reconciled 03/08/25 by Ninfa Cosme CNP bisacodyl 5 - 10 mg (1 - 2 x 5 mg) PO DAILY PRN cholecalciferol (vitamin D3) 25 mcg PO QAM metronidazole 0.75% appl topical DAILY mupirocin 2% topical DAILY norgestimate-ethinyl estradiol 0.25-0.035 mg (Sprintec (28)) 1 tab PO DAILY risperidone 0.5 mg PO BID sennosides (Senna Laxative) 8.6 mg PO BEDTIME sertraline 50 mg PO DAILY terbinafine HCl 250 mg PO DAILY HPI Comments Details: She was doing okay. Self-abusive behavior of biting left hand at times. Behaviors are better and controlled with current medications. Sleep was okay. No issues swallowing pureed foods. They were hoping to move to [place] in the near future. She has a history of encephalopathy with moderately severe mental retardation and cerebral palsy. She is wheelchair-bound and requires total care. She has a vocabulary of 100 words and sometimes make small sentences. She recognizes family and sometimes expresses her needs. She cannot stand or walk. She has no bladder control. She needs pureed food otherwise she cannot swallow. She's never had any seizures. She is always had self-abusive behavior with biting of her hands, slapping herself and sometimes scratching and striking out at her caregiver which is primarily her mother. 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 normal, in no acute distress. Heart:? S1, S2 normal, no murmurs. Lungs:? clear anteriorly and posteriorly. Musculoskeletal:? as below. Extremities:? as below. Psych:? as below. Neuro Other: The patient is in a wheelchair, laughing and blowing kisses. In the past, she will moan, scream, and occasionally will say single words. She does not verbalize beyond that. She does not follow any commands. No flailing upper limb movements where she will slap herself and attempt to bite herself around the wrist noted. Wearing soft L wrist splint. She tracks with her eyes. Pupils 3 mm reactive to light. No facial asymmetry. She does not food her tongue to command. She has atrophy of both upper extremities right greater than left with some increased tone. She has spasticity in both lower extremities with the bilateral AFO braces. There is some contractures in the hamstrings limiting extension to about 130degrees. Bilateral hyperreflexia. Plantar responses are neutral. Unable to stand or walk. Assessment & Plan Assessment & Plan (1) Hypoxic ischemic encephalopathy: Code(s): P91.60 - Hypoxic ischemic encephalopathy [HIE], unspecified Category: Medical Qualifiers: Hypoxic ischemic encephalopathy severity: unspecified severity Qualified Code(s): P91.60 - Hypoxic ischemic encephalopathy [HIE], unspecified Plan: Continue risperidone 0.5mg 1 tablet twice a day. Continue sertraline 50mg 1 tablet daily. (2) Cerebral palsy: Code(s): G80.9 - Cerebral palsy, unspecified Category: Medical Qualifiers: Cerebral palsy type: unspecified type Qualified Code(s): G80.9 - Cerebral palsy, unspecified Plan . Medications: Changed From risperidone 0.5 mg PO BID To risperidone 0.5 mg PO BID 60 tabs 11RF 30 days From sertraline 50 mg PO DAILY To sertraline 50 mg PO DAILY 30 tabs 11RF 30 days Coding Level of Care Code Est Pt Level 4 (48202) Diagnoses Hypoxic ischemic encephalopathy, unspecified severity P91.60 Hypoxic ischemic encephalopathy severity: unspecified severity Cerebral palsy, unspecified type G80.9 Cerebral palsy type: unspecified type
--- OUTSIDE RECORDS SUMMARY | 2025-03-08 16:37 | XMS_ITS | Clinical Summary ---
Author Organization [facility] Address [address] [place] [phone] Phone Care Team Providers Care Contractor General Engineering Name Role Phone Unavailable Primary Care Provider [...] of 2 - 13+ 2-dose series) 2001 HPV Vaccines (1 - 3-dose SCDM series) 2015 Influenza Vaccines (#1) 2025 05/29/20, 04/26/2002, 04/26/2002, Additional history exists COVID-19 Vaccine ( - season) 2025 HIB Vaccines Completed 12/18/1989 IPV Vaccines Completed 07/02/1992, 08/29, 1988, Additional history exists MMR Vaccines Completed 05/31/1994, 09/1992, 07/01/1989 Hepatitis B Vaccines Completed 08/19/2000, 04/01/2000, 01/24/2000 Hepatitis A Vaccines Aged Out No long [...]
--- OUTSIDE RECORDS SUMMARY | 2025-03-08 16:37 | XMS_ITS | Clinical Summary ---
Author Organization [employer] Address [address] [facility] [address] [place] [address] Care Team Providers Care Toolman Name Role Phone Mulu Martin MD Primary Care Provider [phone] Allergies No known active allergies Medications econazole [...] FOR CONSTIPATION 30 tablet 2 4 Active mupirocin (Bactroban) 2 % ointment [...] AREA EVERY DAY 45 g 4 Active mometasone (Elocon) 0.1 % lotion APPLY TO THE SCALP ONCE DAILY 2-3 TIMES PER WEEK 60 mL 3 5 Active Estarylla 0.25-35 MG-MCG tablet TAKE 1 TABLET BY MOUTH EVERY DAY 84 tablet 3 5 Active cholecalciferol (Vitamin D-3) 25 MCG (1000 UT) capsule TAKE 1 CAPSULE BY MOUTH DAILY IN THE MORNING 90 capsule 5 Active erythromycin (Romycin) 5 MG/GM ophthalmic ointment Apply once or twice daily. May use additional doses when severe. Maximum 4 times per day. Apply Amount per Dose: 0.5 inch (~1 cm) per dose. 3.5 g 1 5 Active Hospital, Clinic, or Other Facility Administered Medication [...] OCP and metronidazole gel (prescribed by previous cdl team truck driver) - Continue topical retinoid - Referred to Derm for further recommendation in Mar 2024; check its status Assessment & Plan (05/02/2024 5:21 PM EST): - Previously tried benzoyl peroxide and topical clindamycin - Currently on combined OCP and metronidazole gel (prescribed by previous cdl team truck driver) - Will prescribe topical retinoid - Refer to Derm for further recommendation Assessment & Plan (09/10/2023 1:27 AM EDT): - Start Clotrimazole-Betamethasone cream twice daily for two weeks. Hirsutism 04/16/2015 Assessment & Plan (08/30/2024 1:19 PM EST): Previous medications: Vaniqa, prescribed by her cdl team truck driver, Dr. Gonzalez Normal androgen levels per [facility]. Assessment & Plan (05/02/2024 5:15 PM EST): Previous medications: Vaniqa, prescribed by her cdl team truck driver, Dr. Gonzalez Normal androgen levels per [facility]. Assessment & Plan (09/08/2023 6:33 AM EDT): Previous medications: Vaniqa, prescribed by her cdl team truck driver, Dr. Gonzalez Normal androgen levels per [facility]. Assessment & Plan (03/08/2023 10:16 AM EDT): Previous medications: Vaniqa, prescribed by her cdl team truck driver, Dr. Gonzalez Normal [facility]. Assessment & Plan (08/24/2022 12:59 PM EST): Previous medications: Vaniqa, prescribed by her cdl team truck driver, Dr. Gonzalez Normal [facility]. Hyperprolactinemia 04/16/2015 Assessment & Plan (08/30/2024 [...] for self-injurious behavior, as prescribed by neurology strategy consultant. Continue Sertraline 50 mg daily. Consider [...] for self-injurious behavior, as prescribed by neurology strategy consultant. Continue Sertraline 50 mg daily. Consider [...] for self-injurious behavior, as suggested by neurology strategy consultant. Upcoming appt in May 2019. Continue [...] for self-injurious behavior, as suggested by neurology strategy consultant. Upcoming appt in May 2019. Continue [...] for self-injurious behavior, as suggested by neurology strategy consultant. Upcoming appt in May 2019. Continue [...] Assessment & Plan (08/30/2024 1:19 PM EST): Corn Miller: Deanna, last seen in December 2014 Symptoms: [...] Assessment & Plan (05/02/2024 5:11 PM EST): Corn Miller: Deanna, last seen in December 2014 Symptoms: [...] Assessment & Plan (09/08/2023 6:32 AM EDT): Corn Miller: Deanna, last seen in December 2014 Symptoms: [...] Assessment & Plan (03/08/2023 10:15 AM EDT): Corn Miller: Deanna, last seen in December 2014 Symptoms: [...] Assessment & Plan (08/24/2022 12:58 PM EST): Corn Miller: Deanna, last seen in December 2014 Symptoms: [...] a pureed-diet. She was previously going to [employer] day program. Continue support to her family [...] Encounters Date Type Department Care Team Description 01/31/2025 Orders Only [facility] [address] [facility] [place] [address] Mulu Martin MD 01/30/2025 Telephone [facility] [address] [facility] [place] [phone] Mulu Martin MD 01/10/2025 Ref[facility] [address] [facility] [place] [phone] Laura Quick ANP 12/26/2024 Refill [facility] [address] [facility] [place] [phone] Mulu Martin MD from Last 3 Months Immunizations Immunization Administration Dates Next Due DTP [...] the past 12 months, has t he [employer], gas, oil or water [employer] threatened to shut off services in your [...] 96 08/30/2024 3:37 PM EST Temperature 35.6 C (96 F) 08/30/2024 3:37 PM EST Respiratory Rate 19 08/30/2024 3:37 PM EST Oxygen Saturation - - Inhaled Oxygen Concentration - - Weight 104 kg (228 lb 3.2 oz) 08/30/2024 3:37 PM EST Height - - Body Mass Index - - Plan of Treatment Health Maintenance Due Date Last Done Comments Disability Screening 1988 HPV Vaccines (1 - 3-dose series) 2003 Pap Smear 2009 HPV/Cotest 2018 Influenza Vaccine (#1) 2025 , 04/07/2023, 04/25/2022, Additional history exists Tobacco Screening 04/25/2025 04/25/2024 SDOH Screening 08/30/2025 [...] Completed 03/29/2024, 07/2021, 06/04/2021, Additional history exists Alcohol/Substance Use Screening Discontinued 08/30/2024 Cervical Cancer Screening Discontinued Depression Screening Discontinued Family Planning (PISQ) Discontinued HIV Screening Discontinued Hepatitis A Vaccines Aged Out No long er eligible based on patient's age to complete this topic Hepatitis C Screening Discontinued Meningococcal B Vaccine Aged Out No l onger eligible based on patient's age to complete this topic Meningococcal Vaccine Aged Out No kimi migdalia eligible based on patient's age to complete this topic Pneumococcal Vaccine: Pediatrics (0 to 5 Years) and At-Risk Patients (6 to 49) Years Aged Out No longer eligible based on patient's age to complete this topic RSV under 20 months Aged Out No longe r eligible based on patient's age to complete this topic Rotavirus Vaccines Aged Out No longer eligible based on patient's age to complete this topic Insurance [employer] C3 Advance Directives Documents on File Type Date Recorded Patient Veterinary Physiologist Expl anation Advance Directives and Living Will 03/07/2024 1:17 PM HCP Scanned Under [facility] Care Teams Toolman Relationship Specialty Start Date End Date Mulu Martin MD [address] [place] [id number] PCP - General Family Medicine 06/29/18
--- OUTSIDE RECORDS SUMMARY | 2025-03-08 16:37 | XMS_ITS | Encounter Summary ---
Author Organization [facility] Address [address] [place] [address] Phone Care Team Providers Care Hangar Attendant Name Role Phone Theresa Peña MD Primary Care Provider [phone] Encounter Details Date Type Department Care Team (Late st Contact Info) Description 02/12/2017 Conversion Encounter [facility] [place] [address] [place] [address] Social History Tobacco Use Types Packs/Day Years [...] on filedocumented in this encounter Care Teams Hangar Attendant Relationship Specialty Start Date End Date Theresa Peña MD [address] [place] [address] PCP - General 02/06/17 10/08/22 documented as of this encounter
--- OUTSIDE RECORDS SUMMARY | 2025-03-08 16:37 | XMS_ITS | Encounter Summary ---
Author Organization [employer] Address [address] [facility] [address]t [place] [address] Care Team Providers Care Shadowgraph Scale Operator Name Role Phone Mulu Martin MD Primary Care Provider [phone] Encounter Details Date Type Department Care Team (Late st Contact Info) Description 01/31/2025 Orders Only [facility] [address] [place], [place] [phone] Mulu Martin MD [address] [place], [place] [phone] Social History Tobacco Use Types Packs/Day Years [...] on filedocumented in this encounter Care Teams Shadowgraph Scale Operator Relationship Specialty Start Date End Date Mulu Martin MD [address] [place] [address] PCP - General Family Medicine 06/29/18 documented as of this encounter
--- OUTSIDE RECORDS SUMMARY | 2025-03-08 16:37 | XMS_ITS | Encounter Summary ---
Author Organization [employer] Address [address] [facility] 7 [place] [address] Care Team Providers Care Marketing Analytics Manager Name Role Phone Mulu Martin MD Primary Care Provider [phone] Reason for Referral * Consultation (Routine) - Closed Specialty Diagnoses / Procedures Referred By Patience neumann Referred To Contact Gastroenterology Diagnoses Flatulence Dysphagia, unspecified type Quadriplegic cerebral palsy (CMS/HCC) Mulu Martin MD [address] [place] [address] Phone: tel: fax: [facility] Referral ID Status Reason Start Date Expiration Date V isits Requested Visits Authorized [id number] Closed Specialty Services Required 10/20/2023 10/19/2024 6 6 Encounter Details Date Type Department Care Team (Late st Contact Info) Description 10/16/2023 Orders Only [facility] [address] [place] [address] [phone] Mulu Martin MD [address] [place], [place] [phone] Flatulence (Primary Dx); Dysphagia, unspecified type; Quadriplegic cerebral palsy (CMS/HCC) Social History Tobacco Use Types Packs/Day Years Used Date Smoking Tobacco: Never Smokeless Tobacco: Never Alcohol Use Standard Drinks/Week Comments Never 0 (1 standard drink = 0.6 oz pur e alcohol) Housing Stability Answer Date Recorded What is your housing situation today? I have dewayne sing 08/28/[address] you li [...] stain (08/30/2024 12:00 AM EST) 08/30/2024 08/30/2024 Comment:[facility] - 09/02/2024 8:01 AM EST Gram stain results: 3+ polys 1+ Gram-negative rods Serratia marcescens Quant Org ID [id number] Serratia marcescens: Cefazolin >=32(R) Serratia marcescens: Cefepime <=0.12(S) Serratia marcescens: Ceftriaxone <=0.25(S) Serratia marcescens: Ciprofloxacin 0.12(S) Serratia marcescens: Gentamicin <=1(S) Serratia marcescens: Trimethoprim/Sulfamethoxazole <=20(S) Specimen Source: Axilla Left us Mulu Martin MD LAB MICROBIOLOGY - GENERAL ORDER AMINTA Final Result Performing Organization Address [facility]/ZIP Co de Phone Number [facility] [address] [place] [phone] * Slide Review (03/03/2024 7:52 AM EDT) Slide Review VERIFIED [facility] 03/03/2024 7:52 AM EDT 03/03/2024 7:52 AM EDT us Generic External Data Provider LAB BLOOD ORDERAB LES Final Result Performing Organization Address [facility] Co de Phone Number [facility] [address] [place] [phone] * (ABNORMAL) CBC auto differential (03/03/2024 7:52 AM EDT) White Blood Count 9.5 4.8 - 10.8 X10*3/uL [facility] Red Blood Count 4.70 4.20 - 5.50 X10*6/uL [facility] Hemoglobin 14.1 12.0 - 16.0 g/dl [facility] Hematocrit 41.6 37.0 - 47.0 % [facility] Mean Corpuscular Volume 88.5 80.0 - 98.0 fL [facility] Mean Corpuscular Hemoglobin 30.0 27.0 - 33.0 pg [facility] Mean Corpuscular HGB Conc 33.9 31.0 - 35.0 g/dl [facility] Red Cell Distribution Width 16.1(H) 11.0 - 16.0 % [facility] Platelet Count TNP 160 - 400 X10*3/uL [facility] Comment:Unable to obtain an accurate platelet count. Neutrophils Percent Auto 56.3 45 - 73 % [facility] Imm Gran Pct Auto 0.2 0.0 - 0.4 % [facility] Lymphocytes Percent Auto 35.9 20 - 40 % [facility] Monocytes Percent Auto 4.7 2 - 11 % [facility] Eosinophils Percent Auto 2.3 0 - 4 % [facility] Basophils Percent Auto 0.6 0 - 2 % [facility] NRBC Pct Auto 0.0 0.0 - 0.2 /100WBC [facility] Neutrophils Absolute Auto 5.3 2.0 - 8.3 x10*3/uL [facility] Imm Gran Abs Auto 0.02 0.00 - 0.03 X10*3/uL [facility] Lymphocytes Absolute Auto 3.4 1.2 - 4.9 X10*3/uL [facility] Monocytes Absolute Auto 0.4 0.1 - 1.2 X10*3/uL [facility] Eosinophils Absolute Auto 0.2 0.0 - 0.4 X10*3/uL [facility] Basophils Absolute Auto 0.1 0.0 - 0.2 X10*3/uL [facility] NRBC Abs Auto 0.000 0.0 - 0.012 X10*3/uL [facility] 03/03/2024 7:52 AM EDT 03/03/2024 7:52 AM EDT us Generic External Data Provider LAB BLOOD ORDERAB LES Edited Result - Final [facility] [address] [place] [phone] * (ABNORMAL) Comprehensive Metabolic Panel (03/03/2024 7:52 AM EDT) Sodium 137 135 - 145 mmol/L [facility] Potassium 3.9 3.3 - 5.1 mmol/L [facility] Chloride 105 96 - 108 mmol/L [facility] Carbon Dioxide 22 22 - 29 mmol/L [facility] Anion Gap 14 12 - 20 [facility] Urea Nitrogen (BUN) 7(L) 9 - 16 mg/dL [facility] Creatinine, Serum 0.64 0.5 - 1.4 mg/dL [facility] Estimated Glomerular Filt Rate >60 [facility] Comment:NOTE: For -Am erican individuals, multiply the result by 1.210.Chronic Kidney Disease: Estimated GFR < 60 mL/min/1.90p3Cgwhea Kidney Disease: Estimated GFR < 15 mL/min/1.73m2 Glucose 77 60 - 115 mg/dL [facility] Calcium 9.7 8.4 - 10.2 mg/dL [facility] Bilirubin, Total 0.3 0.0 - 1.0 mg/dL [facility] Aspartate Amino Transferase 22 5 - 31 U/L [facility] Alanine Aminotransferase 19 0 - 31 U/L [facility] Total Protein 7.6 6.5 - 8.0 g/dL [facility] Albumin Level 4.0 3.5 - 5.0 g/dL [facility] Alkaline Phosphatase 77 39 - 117 U/L [facility] 03/03/2024 7:52 AM EDT 03/03/2024 7:52 AM EDT us Generic External Data Provider LAB BLOOD ORDERAB LES Final Result [facility] [address] [place] [phone] documented in this encounter Visit Diagnoses Diagnosis Flatulence- Primary Flatulence, eructation, and gas pain Dysphagia, unspecified type 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
--- OUTSIDE RECORDS SUMMARY | 2025-03-08 16:37 | XMS_ITS | Encounter Summary ---
Author Organization [employer] Address [address] [facility] [address] [place] [address] Care Team Providers Care Fishing Game Warden Name Role Phone Mulu Martin MD Primary Care Provider [phone] Reason for Visit * Reason Comments Med Refill Encounter Details Date Type Department Care Team ([facility] Contact Info) Description 12/26/2024 Refill [facility] [address] [place], [place] [phone] Mulu Martin MD [address] [place], [place] [phone] Social History Tobacco Use Types Packs/Day Years [...] on filedocumented in this encounter Care Teams Fishing Game Warden Relationship Specialty Start Date End Date Mulu Martin MD [address] [place] [phone] PCP - General Family Medicine 06/29/18 documented as of this encounter
== END 2025-03-08 13:50 | disposition home or self-care (01) ==
LOC: HO.HSM 13:34
PROVIDERS: PCP Family Medicine; Visit Provider Registered Nurse
DX: P91.60 Hypoxic ischemic encephalopathy [HIE], unspecified (principal); G80.9 Cerebral palsy, unspecified
CPT/HCPCS: 99214

== ENCOUNTER → 2025-03-08 13:34 | Outpatient (BNVA) | payer MEDICAID, SELFPAY | PROVIDERS: PCP Family Medicine; Visit Provider Registered Nurse | DX: P91.60 Hypoxic ischemic encephalopathy [HIE], unspecified (principal); G80.9 Cerebral palsy, unspecified; Z79.899 Other long term (current) drug therapy | CPT/HCPCS: 99212 ==